=== PATIENT | male | born 1965 | race Caucasian/White ===

== ENCOUNTER 2024-08-03 16:13 | Inpatient (IN) | payer MEDICAID, SELFPAY ==
[2024-08-03 16:17] VITALS: PULSE 84; RESP 18
[2024-08-03 16:39] VITALS: BP 110/69; PULSE 100; RESP 20; TEMP 36.8; O2SAT 95
--- NOTE | 2024-08-03 16:53 | EDNOTE_ITS ---
<Statement entered by Paula Carvalho MD - 08/15/24 21:08> As co-signing physician, I was present and available for consult prn. I concur with the plan and care as documented by the midlevel provider. ED General RME/HPI General Chief complaint: General Adult/Misc Complain Stated complaint: RIGHT LEG NUMBNESS/TINGLING Time Seen by Provider: 08/03/24 16:42 Arrival date/time: 08/03/24 16:13 RME / HPI RME / HPI narrative: 58-year-old male patient who is homeless, hypertension, history of craniectomy in the left, more than a year ago, came in for evaluation regarding right-sided upper and lower extremity weakness. According to the patient the right lower extremity has been weak for more than 3 days, however the right upper extremity was noted to be weaker than usual since he woke up yesterday morning. He told me that he cannot even button his shoelace anymore. He also complained of massive headache. It comes and goes. Patient is not taking any blood thinner. He told me that he had multiple falls for the last 3 days due to weakness to the right upper and lower extremity. Denies any neck pain. Patient is denying also any slurring of speech. Related Data Allergies Allergy/AdvReac Type Severity Reaction Status Date / Time No Known Allergies Allergy Verified 08/03/24 18:57 Review of Systems Review of Systems Narrative Review of Systems: Review of system reviewed and within normal limits except mentioned in HPI ED Exam Narrative Physical exam: VITAL SIGNS: Reviewed. GENERAL APPEARANCE: Alert and interactive, follows commands, no acute distress, HEAD AND FACE: Skull deformity noted on the left side of this head + positive facial asymmetry on the right ENT: PERRL, pink conjunctivitis, eyelid no trauma, Mucous membrane moist. NECK: Supple, nontender, no nuchal rigidity. CHEST: No tenderness, no crepitus, no paradoxical movement, no retractions. LUNGS: Clear, well ventilated, symmetric, no rales, no wheezing, no ronchi, no stridor, good breath sounds bilaterally. HEART: Regular rate, regular rhythm, no murmur, no gallops. ABDOMEN: Soft, positive bowel sounds, nondistended, no guarding, nontender, no rebound, no masses, RECTAL: Deferred. GENITAL: Deferred. NEUROLOGICAL: Gross motor function intact sensory function intact, Appropriate for age. MUSCULOSKELETAL: low back nontender, full range of motion. EXTREMITIES: Right upper and lower extremity weakness, right hand orbitread operator is weaker than the left, slight right arm drifting noted also. SKIN: Color pink, dry, no rash, no lacerations, no abrasions, no contusions. LYMPHATICS: Deferred. Course Quality Measures none Orders Category Date Time Status COVID-19 Screening Questionnaire NOW Care 08/04/24 00:12 Active Decision to Admit X1 Care 08/04/24 00:11 Completed EKG (ED ONLY) *Do not use* NOW Care 08/03/24 17:05 Completed Nurse Swallow Screen X1 Care 08/04/24 00:[address] head/brain wo con Stat Exams 08/03/24 17:04 Completed EKG (ED Only) Stat Exams 08/03/24 17:04 Draft XR chest 1V Stat Exams 08/03/24 17:04 Completed Alcohol, Blood Medical Stat Lab 08/03/24 17:18 Completed B-Type Natriuretic Peptide Stat Lab 08/03/24 17:18 Completed CBC Stat Lab 08/03/24 17:18 Completed Comprehensive Metabolic Panel Stat Lab 08/03/24 17:18 Completed Drug Screen,Urine Stat Lab 08/03/24 17:29 Completed Partial Thromboplastin Time Stat Lab 08/03/24 17:18 Completed Prothrombin Time with INR Stat Lab 08/03/24 17:18 Completed Troponin I Stat Lab 08/03/24 17:18 Completed Urinalysis, C/S if Indicated Stat Lab 08/03/24 17:29 Completed Morphine Inj Med 08/03/24 18:59 Discontinued 4 mg IVP X1 ONE Vital Signs Vital signs: Vital Signs Temperature 98.2 F 08/03/24 16:39 Pulse Rate 100 08/03/24 16:39 Respiratory Rate 20 08/03/24 16:39 Blood Pressure 110/69 08/03/24 16:39 Pulse Oximetry (%) 95 08/03/24 16:39 Oxygen Delivery Method Room Air 08/03/24 16:39 Discharge Plan Plan Patient Disposition: Admit Acute Care w/in Hospital Problem List Clinical Impression: Stroke-like symptom MDM Narrative [facility] hospital course: 58-year-old male patient who is homeless, hypertension, history of craniectomy in the left, more than a year ago, came in for evaluation regarding right-sided upper and lower extremity weakness. According to the patient the right lower extremity has been weak for more than 3 days, however the right upper extremity was noted to be weaker than usual since he woke up yesterday morning. He told me that he cannot even button his shoelace anymore. He also complained of massive headache. It comes and goes. Patient is not taking any blood thinner. He told me that he had multiple falls for the last 3 days due to weakness to the right upper and lower extremity. Denies any neck pain. Patient is denying also any slurring of speech. None urgent teleneurology referral was done Care transferred to NAUN Judge for final disposition pending teleneuro consult Medication Administration(s) Medication Administration History Acetaminophen (Acetaminophen 325 Mg Tablet) 650 mg PO Q6H PRN PRN Reason: PAIN SCALE 1-3 (mild Stop: 09/03/24 00:54 Atorvastatin Calcium (Atorvastatin Calcium 20 Mg Tablet) 40 mg PO HS COUNT INCLUDES THE [facility] Stop: 09/03/24 20:59 Nicotine (Nicotine Patch 7 Mg/24 Hr Patch.Td24) 7 mg TOP QDAY YELENA Stop: 09/03/24 08:59 Last Admin: 08/04/24 09:31 Dose: 7 mg Documented By: MARVIN Ondansetron HCl (Ondansetron Inj 2 Mg/Ml Inj 2 Ml) 4 mg IVP Q6H PRN; Protocol PRN Reason: NAUSEA OR VOMITING Stop: 09/03/24 00:54 Oxycodone/Acetaminophen (Oxycodone/Apap 5/325 Tablet) 1 tab PO Q6H PRN PRN Reason: PAIN SCALE 4-6 (Moderate Stop: 08/09/24 00:54 Last Admin: 08/04/24 09:42 Dose: 1 tab Documented By: Admin: 08/04/24 01:28 Dose: 1 tab Documented By: JOHNNIE Quetiapine Fumarate (Quetiapine Fumarate 25 Mg Tablet) 25 mg PO HS COUNT INCLUDES THE [facility] Stop: 09/03/24 20:59 Discontinued Medications Aspirin (Aspirin 325 Mg Tablet) 325 mg PO QDAY YELENA Stop: 09/03/24 04:34 Morphine Sulfate (Morphine Sulf Inj 10 Mg/Ml Vial) 4 mg IVP X1 ONE Stop: 08/03/24 19:00 Last Admin: 08/03/24 19:22 Dose: 4 mg Documented By: RAJIV Quetiapine Fumarate (Quetiapine Fumarate 25 Mg Tablet) 25 mg PO X1 ONE Stop: 08/04/24 01:01 Last Admin: 08/04/24 01:29 Dose: 25 mg Documented By: JOHNNIE
--- NOTE | 2024-08-03 17:04 | XR_ITS ---
Examination: CT brain head without contrast. 2-D sagittal coronal reconstructions Date and time of exam:August 03, 2024 1729 hours INDICATIONS: Onset right-sided body weakness numbness today CTDI: vol (mGy):46.9 DLP: (mGycm):929 Technique: Multiple CT axial sections of the brain have been obtained, 5 mm slice thickness. Contrast has not been administered. 2-D sagittal, coronal reconstructions have been obtained Low dose protocols were performed. One or more of the following dose reduction techniques were used; automated exposure control, adjustment of the mA and/or KV according to patient size, use of iterative reconstruction technique. Findings: No prior films available. Large left craniotomy defect Mild ventricular enlargement No acute hemorrhage either intra or extra-axial No midline shift IMPRESSION: No acute hemorrhage or mass effect
--- NOTE | 2024-08-03 17:04 | EKG_ITS ---
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
--- NOTE | 2024-08-03 17:04 | XR_ITS ---
Examination: AP chest single view TECHNIQUE: AP portable upright chest single view. Date and time: August 03, 2024, 1742 hours INDICATIONS: Right-sided body weakness beginning 3 days ago. FINDINGS: Normal heart size. No pneumonia or pulmonary edema. Mild osteopenia IMPRESSION: No active disease.
[2024-08-03 17:33] LABS: Basophils # (Auto) 0.1 Thou/mm3 (0.0-0.2); Basophils % (Auto) 1 % (0-2.5); Eosinophils # (Auto) 0.4 Thou/mm3 (0.0-0.5); Eosinophils % (Auto) 4 % (0-10); Hematocrit 41.2 % (41.0-53.0); Hemoglobin 14.9 g/dL (13.5-16.0); Immature Granulocytes % (Auto) 1 % (0-0); Immature Granulocytes Auto 0.05 Thou/mm3 (0.00-0.00); Lymphocytes # (Auto) 3.6 Thou/mm3 (1.0-4.8); Lymphocytes % (Auto) 34 % (10-50); Mean Corpuscular HGB Conc 36.2 g/dl (31.0-37.0); Mean Corpuscular Volume 88 fL (80-100); Monocytes # (Auto) 1.1 Thou/mm3 (0.0-0.8); Monocytes % (Auto) 11 % (0-12); Neutrophils # (Auto) 5.3 Thou/mm3 (1.8-7.7); Neutrophils % (Auto) 50 % (37-80); Nucleated Red Blood Cell % 0 /100 WBC (0); Platelet Count 239 Thou/mm3 (140-440); RDW Standard Deviation 44.5 fL (35.1-43.9); Red Blood Count 4.66 Miln/mm3 (4.50-5.90); White Blood Count 10.5 Thou/mm3 (3.8-10.6)
[2024-08-03 17:36] LABS: Collection Type, Urine Clean Catch; RBC,Urine 0 /hpf (0-3); Squamous Epithelial Cell,Urine 0 /hpf (0-5); WBC,Urine 0 /hpf (0-5)
[2024-08-03 17:50] LABS: Bacteria,Urine Rare; Bilirubin,Urine Negative (Negative); Blood,Urine Negative (Negative); Clarity,Urine Clear (Clear/Hazy); Color,Urine Lt-Yellow (Lt Yel-Yel); Culture Indicated,Urine Not Indicated; Glucose, Urine Negative (Negative); Ketones,Urine Negative (Negative); Leukocyte Esterase,Urine Negative (Negative); Nitrite,Urine Negative (Negative); Protein,Urine Negative (Neg - Trace); Specific Gravity,Urine 1.012 (1.001-1.035); Urobilinogen,Urine Negative mg/dL (0.0-1.0)
[2024-08-03 17:55] LABS: B-Type Natriuretic Peptide < 20 pg/mL (0-100)
[2024-08-03 17:56] LABS: INR 0.9 (0.9-1.3); Partial Thromboplastin Time 27.1 Seconds (22.0-36.0); Prothrombin Time 10.3 Seconds (9.0-12.2)
[2024-08-03 17:57] LABS: Alanine Aminotransferase 23 U/L (10-49); Albumin, Serum 4.2 gm/dL (3.5-5.0); Albumin/Globulin Ratio 1.5 (1.2-2.2); Alcohol, Blood Medical 60.8 mg/dL (0-10.0); Alkaline Phosphatase 90 U/L (46-116); Anion Gap 12 (7-16); Aspartate Amino Transferase 26 U/L (0-34); BUN/Creatinine Ratio 8 Ratio (12-20); Bilirubin,Total 0.5 mg/dL (0.3-1.2); Blood Urea Nitrogen 6 mg/dL (9-23); Calcium 9.1 mg/dL (8.3-10.6); Calcium (Corrected) 9.1 mg/dL (8.5-10.1); Carbon Dioxide 20.5 mMol/L (20.0-31.0); Chloride 107 mMol/L (98-107); Creatinine (Component) 0.8 mg/dL (0.6-1.3); Globulin 2.8 gm/dL (2.3-3.5); Glucose 89 mg/dL (74-106); Osmolality,Calculated 274 (275-295); Potassium 3.4 mMol/L (3.4-5.1); Sodium 139 mMol/L (136-145); Troponin I < 0.002 ng/mL (0.0-0.045); eGFR > 60 See Note
[2024-08-03 18:12] LABS: Amphetamine/Methamp Scrn,U Negative (Negative); Barbiturate Screen,Urine Positive (Negative); Benzodiazepines Screen,Urine Positive (Negative); Benzoylecgonine Screen, Ur Negative (Negative); Fentanyl Screen,Urine Negative (Negative); Opiate Screen,Urine Negative (Negative); THC Screen,Urine Negative (Negative)
[2024-08-03 18:47] VITALS: BP 112/72; PULSE 87; RESP 18; TEMP 36.5; O2SAT 95
[2024-08-03] MEDS: MORPHINE SULF INJ 10 MG/ML VIAL 4 MG IVP (19:22)
[2024-08-03 20:30] VITALS: BP 111/67; PULSE 78; RESP 16; TEMP 37; O2SAT 95
--- NOTE | 2024-08-03 21:06 | PC.NURSE ---
stroke consult Case # [id number]?
[2024-08-03 22:00] VITALS: BP 149/91; PULSE 57; RESP 17; TEMP 37; O2SAT 97
[2024-08-04] VITALS (18 sets, daily range): BP systolic 74–129; BP diastolic 51–83; PULSE 65–91; RESP 13–24; TEMP 36.4–37.1; O2SAT 92–98; BMI 22.9
--- NOTE | 2024-08-04 | XR_ITS ---
Examination: MRI brain without intravenous contrast. Date and time of exam: August 04, 2024 0730 hours INDICATIONS: Onset of right-sided body weakness frequent falls this week, history left craniotomy Technique: Multiple axial and sagittal images of the brain obtained. Siemens high-resolution 1.5 Grace short bore scanners utilized. Sagittal sections, T1-weighted, TR 500, TE 14, are performed. Axial sections proton-density and T2-weighted have been obtained. Inversion recovery axial images, TR 9, 260, TE 111, TI 2500. Diffusion weighted images, axial sections, TR 4800, TE 128, B value 1000 Axial sections, ADC map, TR 4800, TE 128 Findings: Enlargement of the sella turcica is not present. The optic chiasm and infundibular are not remarkable. Prepontine and interpeduncular cisterns are not enlarged. There is no localized enlargement of the medulla or tl. Fourth ventricle and cerebellar tonsils appear normal in position. No subacute area of hemorrhage density is seen. Mass in the cerebellopontine angle region is not evident. Globes symmetrical. Orbital musculature including medial lateral rectus muscles do not exhibit abnormality. Diffusion-weighted images demonstrate no focus of restricted diffusion. Increased white matter signal , minor, medial left parietal lobe Mass effect upon the ventricular system is not identified. Large left craniotomy defect Impression: Negative for acute hemorrhage mass effect or midline shift No acute infarct
--- NOTE | 2024-08-04 00:01 | PC.NURSE ---
per [facility] provider ok for pt to eat if pass nurse swallow screen
--- NOTE | 2024-08-04 00:05 | ESCONSULT_ITS ---
Tele Neuro Consultation Consultation Date 08/04/24 Most Recent Vital Signs Last Vital Signs Temp 98.4 F 08/04/24 00:03 Pulse 85 08/04/24 00:03 Resp 16 08/04/24 00:03 BP 119/78 08/04/24 00:03 Pulse Ox 95 08/04/24 00:03 O2 Del Method Room Air 08/04/24 00:03 Laboratory-Coagulation Panel PT 10.3 Seconds (9.0-12.2) 08/03/24 17:18 INR 0.9 (0.9-1.3) 08/03/24 17:18 APTT 27.1 Seconds (22.0-36.0) 08/03/24 17:18 Consultation Narrative [facility] TeleNeurology Consult Services Stat Consult Patient Name: Garrick Daniels Date of : 1965 Identification Number: Date of Service: 08/03/2024 17:19:44 Diagnosis: ? I63.89 - Cerebrovascular accident (CVA) due to other mechanism ([facility]) Impression 58 yr old male with prior hx of head surgery secondary to trauma, HTN presenting with Right side upper and lower extremity weakness. PT NIHSS is a 6 most notable for right hemiparesis. Pt reports he has been weak since his injury but got worse over the last week. It is not clear what his baseline is. It is possible that he had a stroke that may have made the right side worse. Would recommend getting MRI Brain to eval for signs of a stroke. Also consider discussion with NSGY given that he has not had the remainder of his skull replaced since his surgery. Recommendations: Our recommendations are outlined below. Diagnostic Studies : MRI head without contrast Laboratory Studies : Lipid panel I ordered Hemoglobin A1c Antithrombotic Medication : Hold antithrombotics for now. Statins for LDL goal less than 70 Anticoagulant Medication : Not indicated Nursing Recommendations : IV Fluids, avoid dextrose containing fluids, Maintain euglycemia Neuro checks q4 hrs x 24 hrs and then per shift Head of bed 30 degrees Continue with Telemetry Consultations : Recommend Speech therapy if failed dysphagia screen Physical therapy/Occupational therapy Smoking cessation counselling recommended Inpatient rehab if recommended by physical/occupational therapy DVT Prophylaxis : SCDs, Pneumatic Compression Disposition : Neurology will follow Metrics: Dispatch Time: 08/03/2024 17:19:44 Callback Response Time: 08/03/2024 17:20:11 Primary Provider Notified of Diagnostic Impression and Management Plan on: 08/04/2024 00:03:16 CT HEAD: CT head unremarkable for acute infarction or hemorrhage per Radiology: Large Left Craniotomy defect Chief Complaint: Right Lower Extremity History of Present Illness: Patient is a 58 year old Male. 58 yr old male with prior hx of head surgery secondary to trauma, HTN presenting with Right side upper and lower extremity weakness. He reports that he had the surgery in September 2023 and has not had the skull place back since the surgery. He reports since the injury he has had right sided weakness but it has gotten worse then his baseline. Past Medical History: ? Hypertension ? Stroke Medications: No Anticoagulant use No Antiplatelet use Reviewed EMR for current medications Allergies: Reviewed Social History: Smoking: Yes Drug Use: Former Family History: There is no family history of premature cerebrovascular disease pertinent to this consultation ROS : 14 Points Review of Systems was performed and was negative except mentioned in HPI. Past Surgical History: There Is No Surgical History Contributory To Today?s Visit Examination: BP(149/91), Pulse(57), Blood Glucose(89) 1A: Level of Consciousness - Alert; keenly responsive + 0 1B: Ask Month and Age - Both Questions Right + 0 1C: Blink Eyes & Squeeze Hands - Performs Both Tasks + 0 2: Test Horizontal Extraocular Movements - Normal + 0 3: Test Visual Ying - No Visual Loss + 0 4: Test Facial Palsy (Use Grimace if Obtunded) - Minor paralysis (flat nasolabial fold, smile asymmetry) + 1 5A: Test Left Arm Motor Drift - No Drift for 10 Seconds + 0 5B: Test Right Arm Motor Drift - Drift, but doesn't hit bed + 1 6A: Test Left Leg Motor Drift - No Drift for 5 Seconds + 0 6B: Test Right Leg Motor Drift - Drift, hits bed + 2 7: Test Limb Ataxia (FNF/Heel-Block) - No Ataxia + 0 8: Test Sensation - Mild-Moderate Loss: Less Sharp/More Dull + 1 9: Test Language/Aphasia - Normal; No aphasia + 0 10: Test Dysarthria - Mild-Moderate Dysarthria: Slurring but can be understood + 1 11: Test Extinction/Inattention - No abnormality + 0 NIHSS Score: 6 Spoke with : NAUN Judge This consult was conducted in real time using interactive audio and video technology. Patient was informed of the technology being used for this visit and agreed to proceed. Patient located in hospital and provider located at home/office setting. Patient is being evaluated for possible acute neurologic impairment and high probability of imminent or life - threatening deterioration.I spent total of 35 minutes providing care to this patient, including time for face to face visit via telemedicine, review of medical records, imaging studies and discussion of findings with providers, the patient and / or family. Dr Jose Levi [facility] For Inpatient follow-up with [facility] physician please call [facility] at . As we are not an outpatient service for any post hospital discharge needs please contact the hospital for assistance. If you have any questions for the [facility] physicians or need to reconsult for clinical or diagnostic changes please contact us via [facility] at .
--- NOTE | 2024-08-04 00:47 | PD.RESHP ---
Documentation for date of: 08/04/24 HPI History of Present Illness Chief complaint: Right-sided weakness History of present illness: 58-year-old male with past medical history of left craniectomy secondary to head trauma about 1 year ago, alcohol use disorder, remote history of polysubstance use disorder, tobacco use disorder, COPD homelessness presenting to the ED on 08/04 with increased right-sided weakness. Patient states that he has been having frequent falls ever since he had the left craniectomy at [facility]. Patient explains that he is currently homeless and was previously staying at the [facility] but left due to some disagreement with staff. Patient's been having difficulty ambulating secondary to both left and right lower extremity weakness and states that the right upper extremity weakness has been progressively worsening in the past week. Patient was seen at [facility] but was discharged as medical staff believe that he had been drinking. Patient states that he drinks several cans of beer a day and last drink was today which he states was 1 can of beer. Patient denies hitting his head recently; however, he does have history of head trauma where he hit his head on a manhole cover required craniectomy as stated above. Patient also states that he is been told in the past that he has a bad liver but denies ever being told that he has cirrhosis. Medical history: As stated below Surgical history: Craniectomy, left-sided about 1 year ago at [facility] Allergies: NKDA Medications: Seroquel, bupropion, Meprazole, gabapentin, albuterol inhaler Family history: Noncontributory Social history: Patient is currently homeless, stays around [place], remote history of meth use disorder states that he is converted to [employer] recently, tobacco use disorder, alcohol use disorder ROS: All 12 systems assessed and the patient denies unless otherwise stated in HPI In the ED, patient presented normotensive, tachycardic with heart rate of 100, respiratory 20, afebrile satting 95 on room air pertinent lab findings included WBC 10.5, hemoglobin BUN 6, creatinine 0.8 troponin within normal limits, BNP less than 20 urinalysis with no signs of infection, U-Tox positive for barbiturates and benzos as patient's ethyl alcohol was 60.8 mg/dL. Chest x-ray showed no active disease, head CT showed no acute hemorrhage or mass effect and EKG showed sinus rhythm with occasional PVCs. Patient will be admitted for workup for possible new intracranial process, teleneurology consulted requesting MRI without contrast. Exam Vital Signs Temp Pulse Resp BP Pulse Ox O2 Del Method 98.4 F 85 16 119/78 95 Room Air 08/04/24 00:03 08/04/24 00:03 08/04/24 00:03 08/04/24 00:03 08/04/24 00:03 08/04/24 00:03 Narrative Exam Physical Exam: GENERAL: Awake, answering questions appropriately in Latvian, disheveled HEENT: NC/AT. Moist mucosa. PERRLA/EOMI. Conjunctival erythema CARDIO: Heart RRR, no obvious murmurs, no JVD. PULM: No coughing or visible SOB. Lungs CTA B/L. GI: Abdomen soft, NT/ND, +BS. SKIN/MSK/EXT: Upper and lower extremities with debris, pain noted on palpation of hip girdle. No rashes/edema/amputations noted. +Pedal pulses present B/L. NEURO: Oriented x3, senior trainer strength L>R, large left-sided craniectomy, right upper extremity muscle strength 3 out of 5 versus 5 out of 5 in the left similar lower extremity findings. No focal neurologic deficits noted. Results: Labs 08/04/24 01:10 08/04/24 01:10 Labs: Short CBC 08/03/24 Range/Units 17:18 WBC 10.5 (3.8-10.6) Thou/mm3 Hgb 14.9 (13.5-16.0) g/dL Hct 41.2 (41.0-53.0) % Plt Count 239 (140-440) Thou/mm3 BMP 08/03/24 17:18 Sodium 139 Potassium 3.4 Chloride 107 Carbon Dioxide 20.5 BUN 6 L Creatinine 0.8 Glucose 89 Calcium 9.1 Cardiac Enzymes 08/03/24 Range/Units 17:18 Troponin I < 0.002 (0.0-0.045) ng/mL Liver Function 08/03/24 Range/Units 17:18 Total Bilirubin 0.5 (0.3-1.2) mg/dL AST 26 (0-34) U/L ALT 23 (10-49) U/L Alkaline Phosphatase 90 (46-116) U/L Albumin 4.2 (3.5-5.0) gm/dL Urine 08/03/24 Range/Units 17:29 Urine Color Lt-Yellow (Lt Yel-Yel) Urine Clarity Clear (Clear/Hazy) Urine pH 6.0 (5.0-7.0) Ur Specific [place] 1.012 (1.001-1.035) Urine Protein Negative (Neg - Trace) Urine Glucose (UA) Negative (Negative) Quality Measures Quality Measures VTE prophylaxis Medications Home Medications and Allergies Allergies Allergy/AdvReac Type Severity Reaction Status Date / Time No Known Allergies Allergy Verified 08/03/24 18:57 Visit Medications Discontinued Medications Morphine Sulfate (Morphine Sulf Inj 10 Mg/Ml Vial) 4 mg IVP X1 ONE Stop: 08/03/24 19:00 Last Admin: 08/03/24 19:22 Dose: 4 mg Assessment & Plan Plan 58-year-old male with past medical history of left craniectomy secondary to head trauma about 1 year ago, alcohol use disorder, remote history of polysubstance use disorder, tobacco use disorder, COPD homelessness presenting to the ED with increased right-sided weakness will be admitted for workup for possible new intracranial process, teleneurology consulted requesting MRI without contrast. #Right-sided weakness #Frequent falls #History of craniectomy Patient has extensive history of craniectomy secondary to trauma about 1 year ago completed procedure at [facility] Patient's was staying at [facility] which is some sort of assisted care living facility for physical therapy; however, was left ago due to some disagreement Patient has several episodes of falls since being discharged from the assisted care living facility and is currently homeless On examination, patient has right sided weakness as noted in physical exam Chest x-ray shows no active disease Head CT shows no acute pathology Teleneurology was consulted in the ED which recommended MRI brain without contrast Plan: Follow-up on hip/pelvic x-ray secondary to falls and tenderness on exam Follow-up on MRI brain without contrast Teleneurology consulted, appreciate recommendations Will hold off on anticoagulation antiplatelet at this time as recommended by teleneurology Physical therapy #Psychiatric history Patient is on Seroquel and bupropion per pill bottles bedside Plan: Pending official med rec will restart home medications #Alcohol use disorder #Polysubstance use disorder #Tobacco use disorder As stated above, patient has remote history of polysubstance use disorder but currently actively smokes cigarettes and drinks several cans of beer a day Last drink was on 08/03, states that he drank 1 beer Denies drug use at this time, U tox is positive for barbiturates and benzodiazepines and urine alcohol is at 60.8 mg/dL Plan: rehabilitation services coordinator consulted Nicotine patch for tobacco use disorder Consider CIWA protocol but based on patient's alcohol intake, low suspicion for withdrawal symptoms at this time #Possible liver disease? As stated above, patient has been told in the past that he is a liver disorder On labs, patient's has unremarkable liver function test Plan: Monitor for any acute changes #COPD Chronic medical condition, not currently in an exacerbation Patient appears to only be on albuterol rescue inhaler Plan: Restart home inhalers pending med Health Maintenance: Lines: PIV Diet: Cardiac Bowel: Not needed GI prophylaxis: Not needed DVT prophylaxis: SCDs Dispo: Pending MRI brain without contrast, physical therapy and social media marketing manager for placement Code: Full Patient seen and examined with attending Dr. Enrique Rico, DO PGY-1 Internal Medicine - GME Attending Provider Attestation/Addendum I reviewed labs, imaging, EKG, home medications and prior available records. Face to face evaluation was performed by me. I have personally examined the patient and discussed assessment and plan with the IM team. I reviewed the resident note and agree with the plan with exceptions as below. History of brain trauma status post craniotomy Left upper/left lower extremity weakness Frequent falls Hip pain Alcohol use Tobacco use Homelessness CT head is negative for acute changes No aspirin per neurology recommendations Started atorvastatin Ordered brain MRI Avoid tobacco and alcohol use Hip x-ray to rule out fractures PT/OT evaluation
--- NOTE | 2024-08-04 01:00 | XR_ITS ---
Examination: Bilateral hips 3 views TECHNIQUE: AP pelvis, right lateral left lateral hip total 3 views Date and time: August 04, 2024 1315 hours INDICATIONS: Right leg numbness beginning 2 days ago after falling with injury to both hips FINDINGS: No right or left hip fracture or dislocation Bones of the pelvis intact IMPRESSION: No acute hip or pelvic fracture. Repeat the AP pelvis in 1 to 2 days as clinically warranted
--- NOTE | 2024-08-04 01:11 | PD.EDADDENDU ---
Emergency Room Addendum Addendum Narrative: Care assumed from colleague. Spoke to teleneuro who recommends stroke work-up. See neuro note. Spoke to IM resident who reports to Dr. Nunez, who will admit the patient.
--- NOTE | 2024-08-04 01:19 | PC.NURSE ---
CALLED [facility] FOR SEROQUEL
[2024-08-04 01:25] LABS: Basophils # (Auto) 0.1 Thou/mm3 (0.0-0.2); Basophils % (Auto) 1 % (0-2.5); Eosinophils # (Auto) 0.5 Thou/mm3 (0.0-0.5); Eosinophils % (Auto) 6 % (0-10); Hematocrit 43.7 % (41.0-53.0); Hemoglobin 15.4 g/dL (13.5-16.0); Immature Granulocytes % (Auto) 1 % (0-0); Immature Granulocytes Auto 0.05 Thou/mm3 (0.00-0.00); Lymphocytes # (Auto) 3.5 Thou/mm3 (1.0-4.8); Lymphocytes % (Auto) 37 % (10-50); Mean Corpuscular HGB Conc 35.2 g/dl (31.0-37.0); Mean Corpuscular Hemoglobin 32.3 pg (25.0-35.0); Mean Corpuscular Volume 92 fL (80-100); Monocytes % (Auto) 10 % (0-12); Neutrophils # (Auto) 4.3 Thou/mm3 (1.8-7.7); Neutrophils % (Auto) 46 % (37-80); Nucleated Red Blood Cell % 0 /100 WBC (0); Platelet Count 266 Thou/mm3 (140-440); RDW Standard Deviation 46.4 fL (35.1-43.9); Red Blood Count 4.77 Miln/mm3 (4.50-5.90); White Blood Count 9.4 Thou/mm3 (3.8-10.6)
[2024-08-04] MEDS: oxyCODONE/APAP 5/325 TABLET 1 TAB PO ×4 (01:28→23:59)
[2024-08-04] MEDS: QUEtiapine FUMARATE 25 MG TABLET PO ×2 (01:29→20:29)
[2024-08-04 01:40] LABS: Glucose Estimated Average 94 mg/dL (80-131); Hemoglobin A1C 4.9 % Hgb (4.8-6.0)
[2024-08-04 01:46] LABS: Alanine Aminotransferase 22 U/L (10-49); Albumin, Serum 4.1 gm/dL (3.5-5.0); Albumin/Globulin Ratio 1.5 (1.2-2.2); Alkaline Phosphatase 91 U/L (46-116); Anion Gap 9 (7-16); Aspartate Amino Transferase 25 U/L (0-34); BUN/Creatinine Ratio 6 Ratio (12-20); Blood Urea Nitrogen < 5 mg/dL (9-23); Calcium 9.4 mg/dL (8.3-10.6); Calcium (Corrected) 9.4 mg/dL (8.5-10.1); Carbon Dioxide 25.1 mMol/L (20.0-31.0); Cardiac Risk Estimate 2.1 RATIO (4.0-6.7); Chloride 106 mMol/L (98-107); Cholesterol 139 mg/dL (132-200); Creatinine (Component) 0.8 mg/dL (0.6-1.3); Globulin 2.7 gm/dL (2.3-3.5); Glucose 145 mg/dL (74-106); HDL Cholesterol 67 mg/dL (40-60); LDL Cholesterol,Calculated 60 mg/dL (0-130); Osmolality,Calculated 279 (275-295); Potassium 3.9 mMol/L (3.4-5.1); Sodium 140 mMol/L (136-145); Total Protein 6.8 gm/dL (5.7-8.2); Triglycerides 58 mg/dL (30-150); eGFR > 60 See Note
[2024-08-04] MEDS: NICOTINE PATCH 7 MG/24 HR PATCH.TD24 TOP (09:31)
[2024-08-04] MEDS: ONDANSETRON INJ 2 MG/ML INJ 2 ML 4 MG IVP (16:53)
[2024-08-04] MEDS: LORazepam 0.5 MG TABLET 2 MG PO (16:53)
--- NOTE | 2024-08-04 17:31 | ESPR_ITS ---
<Statement entered by Ronnie Neff MD - 08/06/24 02:18> I discussed with and supervised the electrical intern physician involved in the care of this patient. Patient assessment and plan was discussed with entire medicine team, including my attending. I agree with the assessment and plan as documented by electrical intern doctor. Patient care was discussed with my attending physician Dr. Kristen Neff, PGY-2 Documentation for date of: 08/04/24 Subjective Subjective Interval history: Patient is seen and examined at the bedside. Endorsed that he is having right lower extremity weakness since the craniectomy that happened 1 year ago Vitals are stable. On physical examination, noted weakness in the right upper and lower extremity Brain MRI did not show any acute infarct Will start on CIWA protocol if the patient starts to have withdrawal symptoms Exam Vital Signs Temp Pulse Resp BP Pulse Ox O2 Del Method 98.4 F 89 17 101/69 98 Room Air 08/04/24 16:22 08/04/24 16:22 08/04/24 16:22 08/04/24 16:22 08/04/24 16:22 08/04/24 16:22 Narrative Exam General: Awake. disheveled HEENT: Normocephalic, atraumatic, mucous membranes moist. Heart: Regular rate and rhythm, no murmurs. Lungs: Clear to auscultation with no wheezing or crackles. Abdomen: Soft, nondistended, nontender, positive bowel sounds. ?No guarding or rebound tenderness. Neurologic: Alert and oriented x3, noted weakness in the right upper and lower extremity, 4/5 and patient able to move all 4 extremities. Extremities: No edema. Skin: No rash or ecchymoses. Objective Labs 08/07/24 04:45 08/07/24 04:45 Labs: Laboratory Results - last 24 hr 08/03/24 08/03/24 08/04/24 17:18 17:29 01:10 WBC 10.5 9.4 RBC 4.66 4.77 Hgb 14.9 15.4 Hct 41.2 43.7 MCV 88 92 MCH 32.0 32.3 MCHC 36.2 35.2 RDW Std Deviation 44.5 H 46.4 H Plt Count 239 266 Neut % (Auto) 50 46 Lymph % (Auto) 34 37 [place] % (Auto) 11 10 Eos % (Auto) 4 6 Baso % (Auto) 1 1 Neut # (Auto) 5.3 4.3 Lymph # (Auto) 3.6 3.5 [place] # (Auto) 1.1 H 1.0 H Eos # (Auto) 0.4 0.5 Baso # (Auto) 0.1 0.1 Immature Gran # (Auto) 0.05 H 0.05 H Absolute Nucleated RBC 0.00 0.00 Immature Gran % 1 H 1 H Nucleated RBC % 0 0 PT 10.3 INR 0.9 APTT 27.1 Sodium 139 140 Potassium 3.4 3.9 D Chloride 107 106 Carbon Dioxide 20.5 25.1 Anion Gap 12 9 BUN 6 L < 5 L Creatinine 0.8 0.8 Estim Creat Clear Calc Not Performed. Not Performed. eGFR > 60 > 60 BUN/Creatinine Ratio 8 L 6 L Glucose [address] Glu mg/dL 94 Hemoglobin A1c 4.9 Calculated Osmolality 274 L 279 Calcium 9.1 9.4 Corrected Calcium 9.1 9.4 Total Bilirubin 0.5 1.0 D AST 26 25 ALT 23 22 Alkaline Phosphatase 90 91 Troponin I < 0.002 B-Natriuretic Peptide < 20 Total Protein 7.0 6.8 Albumin 4.2 4.1 Globulin 2.8 2.7 Albumin/Globulin Ratio 1.5 1.5 Triglycerides 58 Cholesterol 139 LDL Cholesterol, Calc 60 HDL Cholesterol 67 H Cholesterol/HDL Ratio 2.1 L Ur Collection Type Clean Catch Urine Color Lt-Yellow Urine Clarity Clear Urine pH 6.0 Ur Specific [place] 1.012 Urine Protein Negative Urine Glucose (UA) Negative Urine Ketones Negative Urine Blood Negative Urine Nitrite Negative Urine Bilirubin Negative Urine Urobilinogen (Auto) Negative Ur Leukocyte Esterase Negative Urine RBC 0 Urine WBC 0 Ur Squamous Epith Cells 0 Urine Bacteria Rare Ur Culture Indicated? Not Indicated Urine Opiates Screen Negative Urine Fentanyl Screen Negative Ur Barbiturates Screen Positive A U Amphetamin/Meth Scrn Negative U Benzodiazepines Scrn Positive A U Cocaine Metab Screen Negative U Marijuana (THC) Screen Negative Ethyl Alcohol 60.8 H Quality Measures Quality Measures none Assessment & Plan Assessment Current Active Medications: Generic Name Dose Route Start Last Admin Trade Name Freq PRN Reason Stop Dose Admin Acetaminophen 650 mg 08/04/24 00:55 Acetaminophen 325 Mg Tablet PO 09/03/24 00:54 Q6H PRN PAIN SCALE 1-3 (mild Atorvastatin Calcium 40 mg 08/04/24 21:00 Atorvastatin Calcium 20 Mg Tablet PO 09/03/24 20:59 HS YELENA Folic Acid 1 mg 08/04/24 21:00 Folic Acid 1 Mg Tablet PO 08/09/24 20:59 BID YELENA Lorazepam 0.5 mg 08/04/24 15:28 Lorazepam 0.5 Mg Tablet PO 08/09/24 15:27 Q4HR PRN CIWA Score 2-6 Lorazepam 1 mg 08/04/24 15:28 Lorazepam 0.5 Mg Tablet PO 08/09/24 15:27 Q4HR PRN CIWA SCORE 7-11 Lorazepam 2 mg 08/04/24 15:28 08/04/24 16:53 Lorazepam 0.5 Mg Tablet PO 08/09/24 15:27 2 mg Q4HR PRN Administration CIWA SCORE 12-15 Lorazepam 1 mg 08/04/24 15:28 Lorazepam 2 Mg/Ml Vial IV X1 PRN Breakthrough Agitation Nicotine 7 mg 08/04/24 09:00 08/04/24 09:31 Nicotine Patch 7 Mg/24 Hr Patch.Td24 TOP 09/03/24 08:59 7 mg QDAY YELENA Administration Ondansetron HCl 4 mg 08/04/24 00:55 08/04/24 16:53 Ondansetron Inj 2 Mg/Ml Inj 2 Ml IVP 09/03/24 00:54 4 mg Q6H PRN Administration NAUSEA OR VOMITING Protocol Oxycodone/Acetaminophen 1 tab 08/04/24 00:55 08/04/24 16:53 Oxycodone/Apap 5/325 Tablet PO 08/09/24 00:54 1 tab Q6H PRN Administration PAIN SCALE 4-6 (Moderate Quetiapine Fumarate 25 mg 08/04/24 21:00 Quetiapine Fumarate 25 Mg Tablet PO 09/03/24 20:59 HS YELENA Thiamine HCl 100 mg 08/04/24 21:00 Thiamine 100 Mg Tablet PO 08/09/24 20:59 BID YELENA Plan 58-year-old male with past medical history of left craniectomy secondary to head trauma about 1 year ago, alcohol use disorder, remote history of polysubstance use disorder, tobacco use disorder, COPD homelessness presenting to the ED with increased right-sided weakness will be admitted for workup for possible new intracranial process, teleneurology consulted requesting MRI without contrast. #Right-sided weakness - stroke ruled out #Frequent falls - likely due to weakness and drugs, alcohol abuse #History of craniectomy Patient has extensive history of craniectomy secondary to trauma about 1 year ago completed procedure at [facility] [place] Patient's was staying at [facility] which is some sort of assisted care living facility for physical therapy; however, was left ago due to some disagreement Patient has several episodes of falls since being discharged from the assisted care living facility and is currently homeless On examination, patient has right sided weakness as noted in physical exam Chest x-ray shows no active disease Head CT shows no acute pathology Teleneurology was consulted in the ED which recommended MRI brain without contrast Brain MRI - Did not show any infarct Plan: Teleneurology consulted, appreciate recommendations Will hold off on anticoagulation antiplatelet at this time as recommended by teleneurology Physical therapy #Psychiatric history Patient is on Seroquel and bupropion per pill bottles bedside Plan: Pending official med rec will restart home medications #Alcohol use disorder #Polysubstance use disorder #Tobacco use disorder As stated above, patient has remote history of polysubstance use disorder but currently actively smokes cigarettes and drinks several cans of beer a day Last drink was on 08/03, states that he drank 1 beer Denies drug use at this time, U tox is positive for barbiturates and benzodiazepines and urine alcohol is at 60.8 mg/dL Plan: administrative services director consulted Nicotine patch for tobacco use disorder Consider CIWA protocol but based on patient's alcohol intake, low suspicion for withdrawal symptoms at this time #Possible liver disease? As stated above, patient has been told in the past that he is a liver disorder On labs, patient's has unremarkable liver function test Plan: Monitor for any acute changes #COPD Chronic medical condition, not currently in an exacerbation Patient appears to only be on albuterol rescue inhaler Plan: Restart home inhalers pending med Health Maintenance: Lines: PIV Diet: Cardiac Bowel: Not needed GI prophylaxis: Not needed DVT prophylaxis: SCDs Dispo: Pending placement Code: Full Patient plan of care was discussed with the attending physician, Dr. Peterson and senior resident Dr. Tawanda Michaels, PGY1 Attending Provider Attestation/Addendum I attest that I was physically present for the evaluation, physical examination, lab and imaging review of the patient with the residents. I discussed the case with the residents and agree with the findings and plans of care as documented above. Randee Peterson MD
--- NOTE | 2024-08-04 19:49 | PC.NURSE ---
pt was given snacks and drink
[2024-08-04] MEDS: THIAMINE 100 MG TABLET PO (20:29)
[2024-08-04] MEDS: ATORVASTATIN CALCIUM 20 MG TABLET 40 MG PO (20:29)
[2024-08-04] MEDS: FOLIC ACID 1 MG TABLET PO (20:29)
[2024-08-05] VITALS (8 sets, daily range): BP systolic 103–121; BP diastolic 74–78; PULSE 75–93; RESP 17–20; TEMP 36.1–36.7; O2SAT 94–98; BMI 21.4
[2024-08-05] MEDS: NICOTINE PATCH 21 MG/24 HR PATCH.TD24 TOP ×2 (01:17→20:34)
--- NOTE | 2024-08-05 01:23 | PC.NURSE ---
Notified by JOSÉ Good that patient is chewing on his cigarettes. Notified pt that smoking OR chewing tobacco in facility is not allowed. notified and ordered 21mg nicotine patch. Patient agreeable to no longer chewing cigarettes/tobacco while in hospital as long as he has nicotine patch
[2024-08-05] MEDS: LORazepam 0.5 MG TABLET PO ×4 (01:28→18:14)
[2024-08-05 06:07] LABS: Basophils # (Auto) 0.1 Thou/mm3 (0.0-0.2); Basophils % (Auto) 1 % (0-2.5); Eosinophils # (Auto) 0.5 Thou/mm3 (0.0-0.5); Eosinophils % (Auto) 6 % (0-10); Hematocrit 41.1 % (41.0-53.0); Hemoglobin 14.4 g/dL (13.5-16.0); Immature Granulocytes % (Auto) 1 % (0-0); Immature Granulocytes Auto 0.05 Thou/mm3 (0.00-0.00); Lymphocytes % (Auto) 13 % (10-50); Mean Corpuscular Volume 91 fL (80-100); Monocytes # (Auto) 0.8 Thou/mm3 (0.0-0.8); Monocytes % (Auto) 10 % (0-12); Neutrophils # (Auto) 5.6 Thou/mm3 (1.8-7.7); Neutrophils % (Auto) 71 % (37-80); Nucleated Red Blood Cell % 0 /100 WBC (0); Platelet Count 260 Thou/mm3 (140-440); RDW Standard Deviation 46.1 fL (35.1-43.9)
[2024-08-05] MEDS: oxyCODONE/APAP 5/325 TABLET 1 TAB PO ×3 (06:10→18:30)
[2024-08-05 06:21] LABS: Alanine Aminotransferase 25 U/L (10-49); Albumin, Serum 3.7 gm/dL (3.5-5.0); Albumin/Globulin Ratio 1.4 (1.2-2.2); Alkaline Phosphatase 85 U/L (46-116); Anion Gap 8 (7-16); Aspartate Amino Transferase 25 U/L (0-34); BUN/Creatinine Ratio 9 Ratio (12-20); Bilirubin,Total 0.9 mg/dL (0.3-1.2); Blood Urea Nitrogen 7 mg/dL (9-23); Calcium 9.1 mg/dL (8.3-10.6); Calcium (Corrected) 9.3 mg/dL (8.5-10.1); Carbon Dioxide 26.7 mMol/L (20.0-31.0); Chloride 106 mMol/L (98-107); Creatinine (Component) 0.8 mg/dL (0.6-1.3); Estimated Creatinine Clearance 97.5 mL/min (>60); Globulin 2.6 gm/dL (2.3-3.5); Glucose 89 mg/dL (74-106); Osmolality,Calculated 278 (275-295); Potassium 4.1 mMol/L (3.4-5.1); Sodium 141 mMol/L (136-145); Total Protein 6.3 gm/dL (5.7-8.2); eGFR > 60 See Note
[2024-08-05] MEDS: FOLIC ACID 1 MG TABLET PO ×2 (12:31→20:26)
[2024-08-05] MEDS: THIAMINE 100 MG TABLET PO ×2 (12:31→20:26)
--- NOTE | 2024-08-05 15:02 | ESPR_ITS ---
Documentation for date of: 08/05/24 Subjective Subjective Interval history: No significant overnight events. Patient doing much better than yesterday, does seem to be a bit emotional. Medical reconciliation regarding gabapentin and bupropion pending, will restart once confirmed. Vitals and labs unremarkable. Patient pending PT. Exam Vital Signs Temp Pulse Resp BP Pulse Ox O2 Del Method 97.2 F 80 20 121/78 97 Room Air 08/05/24 12:00 08/05/24 12:00 08/05/24 12:08/05/24 12:08/05/24 12:08/05/24 12:00 Narrative Exam General: Awake. disheveled HEENT: Normocephalic, atraumatic, mucous membranes moist. Heart: Regular rate and rhythm, no murmurs. Lungs: Clear to auscultation with no wheezing or crackles. Abdomen: Soft, nondistended, nontender, positive bowel sounds. ?No guarding or rebound tenderness. Neurologic: Alert and oriented x3, noted weakness in the right upper and lower extremity, 4/5 and patient able to move all 4 extremities. Extremities: No edema. Skin: No rash or ecchymoses. Objective Labs 08/05/24 05:02 08/05/24 05:02 Labs: Laboratory Results - last 24 hr 08/05/24 05:02 WBC 8.0 RBC 4.50 Hgb 14.4 Hct 41.1 MCV 91 MCH 32.0 MCHC 35.0 RDW Std Deviation 46.1 H Plt Count 260 Neut % (Auto) 71 Lymph % (Auto) 13 [place] % (Auto) 10 Eos % (Auto) 6 Baso % (Auto) 1 Neut # (Auto) 5.6 Lymph # (Auto) 1.0 [place] # (Auto) 0.8 Eos # (Auto) 0.5 Baso # (Auto) 0.1 Immature Gran # (Auto) 0.05 H Absolute Nucleated RBC 0.00 Immature Gran % 1 H Nucleated RBC % 0 Sodium 141 Potassium 4.1 Chloride 106 Carbon Dioxide 26.7 Anion Gap 8 BUN 7 L Creatinine 0.8 Estim Creat Clear Calc 97.5 eGFR > 60 BUN/Creatinine Ratio 9 L Glucose 89 D Calculated Osmolality 278 Calcium 9.1 Corrected Calcium 9.3 Total Bilirubin 0.9 AST 25 ALT 25 Alkaline Phosphatase 85 Total Protein 6.3 Albumin 3.7 Globulin 2.6 Albumin/Globulin Ratio 1.4 Quality Measures Quality Measures none Assessment & Plan Assessment Current Active Medications: Generic Name Dose Route Start Last Admin Trade Name Freq PRN Reason Stop Dose Admin Acetaminophen 650 mg 08/04/24 00:55 Acetaminophen 325 Mg Tablet PO 09/03/24 00:54 Q6H PRN PAIN SCALE 1-3 (mild Albuterol/Ipratropium 3 ml 08/05/24 08:20 Albuterol/Ipratropium (Duoneb) Rt Qi 3 Ml Nebu INH 09/04/24 12:59 Q6HRRT PRN sob Atorvastatin Calcium 40 mg 08/04/24 21:00 08/04/24 20:29 Atorvastatin Calcium 20 Mg Tablet PO 09/03/24 20:59 40 mg HS YELENA Administration Folic Acid 1 mg 08/04/24 21:00 08/05/24 12:31 Folic Acid 1 Mg Tablet PO 08/09/24 20:59 1 mg BID YELENA Administration Lorazepam 0.5 mg 08/04/24 15:28 08/05/24 12:31 Lorazepam 0.5 Mg Tablet PO 08/09/24 15:27 0.5 mg Q4HR PRN Administration CIWA Score 2-6 Lorazepam 1 mg 08/04/24 15:28 Lorazepam 0.5 Mg Tablet PO 08/09/24 15:27 Q4HR PRN CIWA SCORE 7-11 Lorazepam 2 mg 08/04/24 15:28 08/04/24 16:53 Lorazepam 0.5 Mg Tablet PO 08/09/24 15:27 2 mg Q4HR PRN Administration CIWA SCORE 12-15 Lorazepam 1 mg 08/04/24 15:28 Lorazepam 2 Mg/Ml Vial IV X1 PRN Breakthrough Agitation Nicotine 21 mg 08/05/24 00:55 08/05/24 12:25 Nicotine Patch 21 Mg/24 Hr Patch.Td24 TOP 09/04/24 00:54 Not Given QDAY YELENA Ondansetron HCl 4 mg 08/04/24 00:55 08/04/24 16:53 Ondansetron Inj 2 Mg/Ml Inj 2 Ml IVP 09/03/24 00:54 4 mg Q6H PRN Administration NAUSEA OR VOMITING Protocol Oxycodone/Acetaminophen 1 tab 08/04/24 00:55 08/05/24 12:31 Oxycodone/Apap 5/325 Tablet PO 08/09/24 00:54 1 tab Q6H PRN Administration PAIN SCALE 4-6 (Moderate Pantoprazole Sodium 20 mg 08/05/24 21:00 Pantoprazole 20 Mg Tablet PO 09/04/24 20:59 HS YELENA Quetiapine Fumarate 25 mg 08/04/24 21:00 08/04/24 20:29 Quetiapine Fumarate 25 Mg Tablet PO 09/03/24 20:59 25 mg HS YELENA Administration Thiamine HCl 100 mg 08/04/24 21:00 08/05/24 12:31 Thiamine 100 Mg Tablet PO 08/09/24 20:59 100 mg BID YELENA Administration Plan 58-year-old male with past medical history of left craniectomy secondary to head trauma about 1 year ago, alcohol use disorder, remote history of polysubstance use disorder, tobacco use disorder, COPD homelessness presenting to the ED with increased right-sided weakness will be admitted for workup for possible new intracranial process, teleneurology consulted requesting MRI without contrast. #Right-sided weakness - stroke ruled out #Frequent falls - likely due to weakness and drugs, alcohol abuse #History of craniectomy Patient has extensive history of craniectomy secondary to trauma about 1 year ago [place] [facility] [place] was staying at [facility] which is some sort of assisted care living facility for physical therapy; however, was left ago due to some disagreement Patient has several episodes of falls since being discharged from the assisted care living facility and is currently homeless On examination, patient has right sided weakness as noted in physical exam Chest x-ray shows no active disease Head CT shows no acute pathology Teleneurology was consulted in the ED which recommended MRI brain without contrast Brain MRI - Did not show any infarct Plan: -Will hold off on anticoagulation antiplatelet at this time as recommended by teleneurology -Physical therapy pending #Psychiatric history Plan: -Seroquel restarted -Will restart Bupropion and Gabapentin after med reconciliation #Alcohol use disorder #Polysubstance use disorder #Tobacco use disorder As stated above, patient has remote history of polysubstance use disorder but currently actively smokes cigarettes and drinks several cans of beer a day Last drink was on 08/03, states that he drank 1 beer Denies drug use at this time, U tox is positive for barbiturates and benzodiazepines and urine alcohol is at 60.8 mg/dL Plan: -financial services sales representative consulted -Nicotine patch for tobacco use disorder -On [facility] protocol #Possible liver disease? As stated above, patient has been told in the past that he is a liver disorder On labs, patient's has unremarkable liver function test Plan: Monitor for any acute changes #COPD Chronic medical condition, not currently in an exacerbation Patient appears to only be on albuterol rescue inhaler Plan: -DuoNebs Q6H PRN Health Maintenance: Lines: PIV Diet: Cardiac Bowel: Not needed GI prophylaxis: Not needed DVT prophylaxis: SCDs Dispo: Pending placement Code: Full This patient care was discussed with my attending Dr. Brigitte Neff MD PGY-2 Disclaimer: Minor errors in hat finishing materials preparer may be present since this note was dictated by speech recognition software. Attending Provider Attestation/Addendum I have discussed and was present for the essential components of the history, physical examination, diagnosis, and treatment plan with the resident. I agree with the patient's care as documented by the resident and amended herein by me. Santiago Briggs, DO. Patient seen and evaluated this AM. No acute events overnight, vital signs stable, patient afebrile, labs largely unremarkable today. Patient was in good spirits at time of bedside visit, stated the desire to get his life together, was able to clearly outline his medical issues, did not disclose or hint of any SI or HI at time of bedside visit however per our social media content manager Beverly, the patient did express desires of SI and quickly recanted hence I think the patient needs clearance prior to discharge to ensure his own safety and safety to others. Will likely get tomorrow if SNF becomes available as all imaging is negative, the patient has been cleared for discharge by neurology. Physical therapy pending. Continue to monitor closely Leiser. Although this document has been carefully reviewed, there may still be some phonetic and other typographical errors. These errors are purely grammatical due to imperfections in the software program and should not be construed in any way to compromise the substance of the patient's medical care during this visit.
--- NOTE | 2024-08-05 15:55 | PC.SS ---
Patient is a 58YO White Male, reason for visit: RIGHT SIDED WEAKNESS. Demographic information confirmed by patient. He stated address listed: [address] [place] is only a mailing address due to patient being transient. Patient?s Primary Medical Surrogate Decision Maker is his Friend Marie [phone]. Prior to hospitalization, patient was independent with ADLs and utilized a wheelchair to assist with ambulation. Patient also has a FWW, but reports he dislikes using it. ?[facility]. PCP: Alex Wan. During initial assessment, patient disclosed SI and method of overdose to end life if help is not obtained. SS inquired about SI frequency and if he had plan to end life. Patient stated, ?ignore I said that.? SS informed Dr. Neff ?and Dr. Briggs patient may need mental health eval before discharging. Patient disclosed history of depression and anxiety. Patient requested assistance with housing. SS explained to patient SS can provide resources to patient for detention, mental health support, etc. but cannot request housing assistance such as section 8 or subsidized housing. SS stated if SNF is recommended by hospitalist team, SS to assist with referrals Next of kin: Friend Marie [phone]. Discharge plan: TBD, transportation will be needed. .
[2024-08-05] MEDS: ATORVASTATIN CALCIUM 20 MG TABLET 40 MG PO (20:26)
[2024-08-05] MEDS: LORazepam 2 MG/ML VIAL 1 MG IV (20:27)
[2024-08-05] MEDS: QUEtiapine FUMARATE 25 MG TABLET PO (20:27)
[2024-08-05] MEDS: PANTOPRAZOLE 20 MG TABLET PO (20:27)
--- NOTE | 2024-08-05 20:52 | PC.NURSE ---
spoke MD about social service note and earlier progress note about patient stating if i dont get help, ill just take all my pills . verbal orders for psych hold and 1 to 1. I went to patient to gather more info on SI and HI, patient initially denies any SI or HI. After I said that the social service mentioned his statement from earlier, the pt said oh yes, you know i am just tired of living outside so thats probably whats going to happen. i just want a home . Room cleared and 1:1 placed. patient initially agitated and took a cigarette from his personal belongings and started chewing it. i reinforced that chewing or smoking tobacco in the facility is not allowed. Pt verbally responded, they said i cant smoke it, but no one told me that i cant chew. i wont chew it anymore new nicotine patch applied. MD and fuel house attendant made aware.
--- NOTE | 2024-08-05 21:30 | EVENTNT_ITS ---
Documentation for date of: 08/05/24 Event Note Event Note: Received a call by charge nurse concerning 58-year-old male for suicidal ideation. As per nurse patient had been previously seen by social workers and it was noted that he had some suicidal ideation, but on chart review when they team attending spoke with the patient he did not have any suicidal ideation or any plan at this time. When I spoke with the patient given charge nurses concern and asked for a one-to-one sitter and suicidal ideation given that when speaking to the patient patient was very emotional and he did have suicidal ideation at this time. He stated I will take all bottle full of pills from a bag when asked why he stated that he feels he is not getting help and that he would not like to go back to the streets and that he would like a home. At this time patient stated he had never had any thoughts about killing himself or harming anybody else that he has no prior history of harming self. Patient did mention that he was getting tired of not being helped and that life from the street was hard therefore that he had to go back to the street he had thoughts about harming himself with taking multiple pills at once. Otherwise patient was understanding when I told him that these were alarming thoughts and concerning for suicide ideation therefore we will have to take precautions and he stated that he understood, but that he just wants some help and not be discharged back to the streets. Patient will have a one-to-one sitter and suicide precautions were taken. Will let the team know and we will have social workers speak with the patient concerning possible placement once able to discharge and will have a team consult crisis to ensure patient safety. Case disclosed with Attending Dr. Enrique Casey PGY1 Disclaimer: Even though this this note was dictated by speech recognition and even though it was carefully revised there may still be minor errors in shared services representative due to voice recognition software.
[2024-08-06] VITALS (12 sets, daily range): BP systolic 109–120; BP diastolic 67–79; PULSE 66–88; RESP 14–18; TEMP 36.2–36.7; O2SAT 92–99; BMI 21.9; BMI 14.0
[2024-08-06] MEDS: LORazepam 0.5 MG TABLET PO (05:25)
[2024-08-06] MEDS: oxyCODONE/APAP 5/325 TABLET 1 TAB PO ×2 (05:28→15:50)
[2024-08-06 05:55] LABS: Basophils # (Auto) 0.1 Thou/mm3 (0.0-0.2); Basophils % (Auto) 1 % (0-2.5); Eosinophils # (Auto) 0.5 Thou/mm3 (0.0-0.5); Eosinophils % (Auto) 8 % (0-10); Hematocrit 41.6 % (41.0-53.0); Hemoglobin 14.5 g/dL (13.5-16.0); Immature Granulocytes % (Auto) 1 % (0-0); Immature Granulocytes Auto 0.03 Thou/mm3 (0.00-0.00); Lymphocytes % (Auto) 31 % (10-50); Mean Corpuscular HGB Conc 34.9 g/dl (31.0-37.0); Mean Corpuscular Hemoglobin 32.1 pg (25.0-35.0); Mean Corpuscular Volume 92 fL (80-100); Monocytes % (Auto) 16 % (0-12); Neutrophils # (Auto) 2.8 Thou/mm3 (1.8-7.7); Neutrophils % (Auto) 44 % (37-80); Nucleated Red Blood Cell % 0 /100 WBC (0); Platelet Count 252 Thou/mm3 (140-440); RDW Standard Deviation 46.1 fL (35.1-43.9); Red Blood Count 4.52 Miln/mm3 (4.50-5.90); White Blood Count 6.3 Thou/mm3 (3.8-10.6)
[2024-08-06 06:22] LABS: Alanine Aminotransferase 35 U/L (10-49); Albumin, Serum 3.6 gm/dL (3.5-5.0); Albumin/Globulin Ratio 1.4 (1.2-2.2); Alkaline Phosphatase 86 U/L (46-116); Anion Gap 9 (7-16); Aspartate Amino Transferase 32 U/L (0-34); BUN/Creatinine Ratio 9 Ratio (12-20); Bilirubin,Total 0.5 mg/dL (0.3-1.2); Blood Urea Nitrogen 7 mg/dL (9-23); Calcium 9.2 mg/dL (8.3-10.6); Calcium (Corrected) 9.5 mg/dL (8.5-10.1); Carbon Dioxide 25.7 mMol/L (20.0-31.0); Chloride 107 mMol/L (98-107); Creatinine (Component) 0.8 mg/dL (0.6-1.3); Globulin 2.5 gm/dL (2.3-3.5); Glucose 98 mg/dL (74-106); Osmolality,Calculated 281 (275-295); Potassium 3.9 mMol/L (3.4-5.1); Sodium 142 mMol/L (136-145); Total Protein 6.1 gm/dL (5.7-8.2); eGFR > 60 See Note
[2024-08-06] MEDS: FOLIC ACID 1 MG TABLET PO ×2 (08:41→20:49)
[2024-08-06] MEDS: THIAMINE 100 MG TABLET PO ×2 (08:41→20:49)
--- NOTE | 2024-08-06 10:36 | PC.SS ---
Follow up note: SS received call from PT and they completed the evaluation. Recommended SNF short term. SS will submit request on [facility] for placement. Patient ready for d/c. ASW will complete crisis eval prior to d/c.
--- NOTE | 2024-08-06 11:41 | PC.CC ---
NILAY Early received a call from LEON Quinones who reported that once pt is medically cleared she will inform field underwriter to move forward forward with a MH assessment.
--- NOTE | 2024-08-06 12:42 | PC.PT ---
Patient is safe to ambulate to the bathroom using a FWW, his helmet, and 1 staff assist. RN and FACS TEACHER made aware.
--- NOTE | 2024-08-06 13:43 | ESPR_ITS ---
Documentation for date of: 08/06/24 Subjective Subjective Interval history: Patient is seen and examined at bedside Overnight, patient had suicidal ideation for which patient was kept on one-on-one sitter and suicide precautions, pending crisis evaluation Complaining of pulsating headaches, on left side at the site of surgery Vitals are stable. Physical examination remains unchanged from the day of admission Labs did not show any significant abnormality Pending SNF placement Exam Vital Signs Temp Pulse Resp BP Pulse Ox O2 Del Method 97.1 F 79 18 112/77 93 L Room Air 08/06/24 11:39 08/06/24 11:39 08/06/24 11:39 08/06/24 11:39 08/06/24 11:39 08/06/24 07:57 Narrative Exam General: Awake. disheveled HEENT: Normocephalic, atraumatic, mucous membranes moist. Heart: Regular rate and rhythm, no murmurs. Lungs: Clear to auscultation with no wheezing or crackles. Abdomen: Soft, nondistended, nontender, positive bowel sounds. ?No guarding or rebound tenderness. Neurologic: Alert and oriented x3, noted weakness in the right upper and lower extremity, 4/5 and patient able to move all 4 extremities. Extremities: No edema. Skin: No rash or ecchymoses. Objective Labs 08/06/24 04:50 08/06/24 04:50 Labs: Laboratory Results - last 24 hr 08/06/24 04:50 WBC 6.3 RBC 4.52 Hgb 14.5 Hct 41.6 MCV 92 MCH 32.1 MCHC 34.9 RDW Std Deviation 46.1 H Plt Count 252 Neut % (Auto) 44 Lymph % (Auto) 31 Bergen % (Auto) 16 H Eos % (Auto) 8 Baso % (Auto) 1 Neut # (Auto) 2.8 Lymph # (Auto) 2.0 Bergen # (Auto) 1.0 H Eos # (Auto) 0.5 Baso # (Auto) 0.1 Immature Gran # (Auto) 0.03 H Absolute Nucleated RBC 0.00 Immature Gran % 1 H Nucleated RBC % 0 Sodium 142 Potassium 3.9 Chloride 107 Carbon Dioxide 25.7 Anion Gap 9 BUN 7 L Creatinine 0.8 Estim Creat Clear Calc 100.0 eGFR > 60 BUN/Creatinine Ratio 9 L Glucose 98 Calculated Osmolality 281 Calcium 9.2 Corrected Calcium 9.5 Total Bilirubin 0.5 AST 32 ALT 35 Alkaline Phosphatase 86 Total Protein 6.1 Albumin 3.6 Globulin 2.5 Albumin/Globulin Ratio 1.4 Quality Measures Quality Measures none Assessment & Plan Assessment Current Active Medications: Generic Name Dose Route Start Last Admin Trade Name Freq PRN Reason Stop Dose Admin Acetaminophen 650 mg 08/04/24 00:55 Acetaminophen 325 Mg Tablet PO 09/03/24 00:54 Q6H PRN PAIN SCALE 1-3 (mild Albuterol/Ipratropium 3 ml 08/05/24 08:20 Albuterol/Ipratropium (Duoneb) Rt Qi 3 Ml Nebu INH 09/04/24 12:59 Q6HRRT PRN sob Atorvastatin Calcium 40 mg 08/04/24 21:00 08/05/24 20:26 Atorvastatin Calcium 20 Mg Tablet PO 09/03/24 20:59 40 mg HS YELENA Administration Folic Acid 1 mg 08/04/24 21:00 08/06/24 08:41 Folic Acid 1 Mg Tablet PO 08/09/24 20:59 1 mg BID YELENA Administration Lorazepam 0.5 mg 08/04/24 15:28 08/05/24 18:14 Lorazepam 0.5 Mg Tablet PO 08/09/24 15:27 0.5 mg Q4HR PRN Administration CIWA Score 2-6 Lorazepam 1 mg 08/04/24 15:28 Lorazepam 0.5 Mg Tablet PO 08/09/24 15:27 Q4HR PRN CIWA SCORE 7-11 Lorazepam 2 mg 08/04/24 15:28 08/04/24 16:53 Lorazepam 0.5 Mg Tablet PO 08/09/24 15:27 2 mg Q4HR PRN Administration CIWA SCORE 12-15 Nicotine 21 mg 08/06/24 09:08 Nicotine Patch 21 Mg/24 Hr Patch.Td24 TOP 09/04/24 00:54 QDAY YELENA Ondansetron HCl 4 mg 08/04/24 00:55 08/04/24 16:53 Ondansetron Inj 2 Mg/Ml Inj 2 Ml IVP 09/03/24 00:54 4 mg Q6H PRN Administration NAUSEA OR VOMITING Protocol Oxycodone/Acetaminophen 1 tab 08/04/24 00:55 08/06/24 05:28 Oxycodone/Apap 5/325 Tablet PO 08/09/24 00:54 1 tab Q6H PRN Administration PAIN SCALE 4-6 (Moderate Pantoprazole Sodium 20 mg 08/05/24 21:00 08/05/24 20:27 Pantoprazole 20 Mg Tablet PO 09/04/24 20:59 20 mg HS YELENA Administration Quetiapine Fumarate 25 mg 08/04/24 21:00 08/05/24 20:27 Quetiapine Fumarate 25 Mg Tablet PO 09/03/24 20:59 25 mg HS YELENA Administration Thiamine HCl 100 mg 08/04/24 21:00 08/06/24 08:41 Thiamine 100 Mg Tablet PO 08/09/24 20:59 100 mg BID YELENA Administration Plan 58-year-old male with past medical history of left craniectomy secondary to head trauma about 1 year ago, alcohol use disorder, remote history of polysubstance use disorder, tobacco use disorder, COPD homelessness presenting to the ED with increased right-sided weakness will be admitted for workup for possible new intracranial process, teleneurology consulted requesting MRI without contrast. #Right-sided weakness - stroke ruled out #Frequent falls - likely due to weakness and drugs, alcohol abuse #History of craniectomy Patient has extensive history of craniectomy secondary to trauma about 1 year ago completed procedure at [facility] Patient's was staying at [facility] which is some sort of assisted care living facility for physical therapy; however, was left ago due to some disagreement Patient has several episodes of falls since being discharged from the assisted care living facility and is currently homeless On examination, patient has right sided weakness as noted in physical exam Chest x-ray shows no active disease Head CT shows no acute pathology Teleneurology was consulted in the ED which recommended MRI brain without contrast Brain MRI - Did not show any infarct Plan: Will hold off on anticoagulation antiplatelet at this time as recommended by teleneurology Physical therapy recommended short term SNF placement, pending placement #Psychiatric history Patient is on Seroquel and bupropion per pill bottles bedside Plan -Resumed his home medications #Alcohol use disorder #Polysubstance use disorder #Tobacco use disorder As stated above, patient has remote history of polysubstance use disorder but currently actively smokes cigarettes and drinks several cans of beer a day Last drink was on 08/03, states that he drank 1 beer Denies drug use at this time, U tox is positive for barbiturates and benzodiazepines and urine alcohol is at 60.8 mg/dL Plan: office services coordinator consulted Nicotine patch for tobacco use disorder On CIWA protocol and librium 10mg orally thrice daily, will taper #Possible liver disease? As stated above, patient has been told in the past that he is a liver disorder On labs, patient's has unremarkable liver function test Plan: Monitor for any acute changes #COPD Chronic medical condition, not currently in an exacerbation Patient appears to only be on albuterol rescue inhaler Health Maintenance: Lines: PIV Diet: Cardiac Bowel: Not needed GI prophylaxis: Not needed DVT prophylaxis: SCDs Dispo: Pending placement Code: Full Patient plan of care was discussed with the attending physician, Dr. Brigitte Michaels, PGY1 Attending Provider Attestation/Addendum I have discussed and was present for the essential components of the history, physical examination, diagnosis, and treatment plan with the resident. I agree with the patient's care as documented by the resident and amended herein by me. Santiago Briggs DO. Patient seen and evaluated this AM. No acute events overnight. Patient pending SNF authorization, once facility is lockdown, crisis team will evaluate the patient prior to actual discharge. Although this document has been carefully reviewed, there may still be some phonetic and other typographical errors. These errors are purely grammatical due to imperfections in the software program and should not be construed in any way to compromise the substance of the patient's medical care during this visit.
[2024-08-06] MEDS: chlordiazePOXIDE HCl 10 MG CAPSULE PO ×2 (15:50→22:01)
[2024-08-06 16:39] LABS: Thyroid Stimulating Hormone 2.95 uIU/mL (0.55-4.78)
--- NOTE | 2024-08-06 19:10 | PC.NURSE ---
PT C/O SEVERE HUYNH 09/30. OFFERED TYLENOL BUT PT STATED TYLENOL AND IBUPROFEN WILL NOT HELP AND REQUESTING PERCOCET. DR. BENNIE KHAN NOTIFIED AND NEW ORDER RECEIVED.
[2024-08-06] MEDS: LORazepam 0.5 MG TABLET 1 MG PO (19:16)
[2024-08-06] MEDS: HYDROcodone/APAP 5/325 TABLET 1 TAB PO (19:16)
[2024-08-06] MEDS: ATORVASTATIN CALCIUM 20 MG TABLET 40 MG PO (20:49)
[2024-08-06] MEDS: QUEtiapine FUMARATE 25 MG TABLET PO (20:49)
[2024-08-06] MEDS: PANTOPRAZOLE 20 MG TABLET PO (20:49)
[2024-08-06] MEDS: BuPROPion HCL 100 MG TABLET PO (20:49)
--- NOTE | 2024-08-06 22:03 | PC.NURSE ---
LEFT SHOULDER NICOTINE PATCH OFF.
[2024-08-07] VITALS (9 sets, daily range): BP systolic 116–127; BP diastolic 75–88; PULSE 68–87; RESP 14–19; TEMP 36.2–36.6; O2SAT 95–98; BMI 21.7; BMI 21.6
[2024-08-07] MEDS: oxyCODONE/APAP 5/325 TABLET 1 TAB PO ×4 (01:13→19:59)
[2024-08-07] MEDS: chlordiazePOXIDE HCl 10 MG CAPSULE PO ×2 (05:37→17:50)
[2024-08-07 05:59] LABS: Basophils # (Auto) 0.1 Thou/mm3 (0.0-0.2); Basophils % (Auto) 1 % (0-2.5); Eosinophils # (Auto) 0.4 Thou/mm3 (0.0-0.5); Eosinophils % (Auto) 6 % (0-10); Hematocrit 45.7 % (41.0-53.0); Hemoglobin 15.8 g/dL (13.5-16.0); Immature Granulocytes % (Auto) 1 % (0-0); Immature Granulocytes Auto 0.04 Thou/mm3 (0.00-0.00); Lymphocytes # (Auto) 2.3 Thou/mm3 (1.0-4.8); Lymphocytes % (Auto) 34 % (10-50); Mean Corpuscular HGB Conc 34.6 g/dl (31.0-37.0); Mean Corpuscular Hemoglobin 31.9 pg (25.0-35.0); Mean Corpuscular Volume 92 fL (80-100); Monocytes % (Auto) 16 % (0-12); Neutrophils # (Auto) 2.9 Thou/mm3 (1.8-7.7); Neutrophils % (Auto) 43 % (37-80); Nucleated Red Blood Cell % 0 /100 WBC (0); Platelet Count 304 Thou/mm3 (140-440); RDW Standard Deviation 46.7 fL (35.1-43.9); Red Blood Count 4.95 Miln/mm3 (4.50-5.90); White Blood Count 6.7 Thou/mm3 (3.8-10.6)
[2024-08-07 06:03] LABS: Alanine Aminotransferase 33 U/L (10-49); Albumin, Serum 3.7 gm/dL (3.5-5.0); Albumin/Globulin Ratio 1.5 (1.2-2.2); Alkaline Phosphatase 84 U/L (46-116); Anion Gap 11 (7-16); Aspartate Amino Transferase 30 U/L (0-34); BUN/Creatinine Ratio 10 Ratio (12-20); Bilirubin,Total 0.4 mg/dL (0.3-1.2); Blood Urea Nitrogen 8 mg/dL (9-23); Calcium 9.1 mg/dL (8.3-10.6); Calcium (Corrected) 9.3 mg/dL (8.5-10.1); Carbon Dioxide 25.9 mMol/L (20.0-31.0); Chloride 107 mMol/L (98-107); Creatinine (Component) 0.8 mg/dL (0.6-1.3); Estimated Creatinine Clearance 98.8 mL/min (>60); Globulin 2.5 gm/dL (2.3-3.5); Glucose 102 mg/dL (74-106); Osmolality,Calculated 285 (275-295); Potassium 4.8 mMol/L (3.4-5.1); Sodium 144 mMol/L (136-145); Total Protein 6.2 gm/dL (5.7-8.2); eGFR > 60 See Note
[2024-08-07] MEDS: POLYETHYLENE GLYCOL 17 GM PACKET PO (08:05)
[2024-08-07] MEDS: MULTIVITAMINS TABLET 1 TAB PO (08:05)
[2024-08-07] MEDS: BuPROPion HCL 100 MG TABLET PO ×2 (08:05→20:53)
[2024-08-07] MEDS: FOLIC ACID 1 MG TABLET PO ×2 (08:05→20:52)
[2024-08-07] MEDS: NICOTINE PATCH 21 MG/24 HR PATCH.TD24 TOP (08:06)
[2024-08-07] MEDS: SENNA TABLET 1 TAB PO (08:22)
[2024-08-07] MEDS: bisacodyL 5 MG TABEC PO (08:23)
--- NOTE | 2024-08-07 11:37 | ESPR_ITS ---
<Statement entered by Ronnie Neff MD - 08/08/24 00:32> I discussed with and supervised the international flight attendant physician involved in the care of this patient. Patient assessment and plan was discussed with entire medicine team, including my attending. I agree with the assessment and plan as documented by international flight attendant doctor. Patient care was discussed with my attending physician Dr. Brigitte Neff, PGY-2 Documentation for date of: 08/07/24 Subjective Subjective Interval history: Patient is seen and examined at bedside No acute overnight events. Denies any other complaints Vitals are stable. Physical examination remains unchanged Lab values are within normal limits. Patent is supposed to go to [facility] for cap placement for craniotomy Still pending SNF placement Exam Vital Signs Temp Pulse Resp BP Pulse Ox O2 Del Method 97.4 F 76 18 122/77 96 Room Air 08/07/24 08:00 08/07/24 08:00 08/07/24 08:00 08/07/24 08:00 08/07/24 08:00 08/07/24 08:00 Narrative Exam General: Awake. HEENT: Normocephalic, atraumatic, mucous membranes moist. Heart: Regular rate and rhythm, no murmurs. Lungs: Clear to auscultation with no wheezing or crackles. Abdomen: Soft, nondistended, nontender, positive bowel sounds. ?No guarding or rebound tenderness. Neurologic: Alert and oriented x3, noted weakness in the right upper and lower extremity, 4/5 and patient able to move all 4 extremities. noted craniotomy on left side Extremities: No edema. Skin: No rash or ecchymoses. Objective Labs 08/07/24 04:45 08/07/24 04:45 Labs: Laboratory Results - last 24 hr 08/06/24 08/07/24 04:50 04:45 WBC 6.7 RBC 4.95 Hgb 15.8 Hct 45.7 MCV 92 MCH 31.9 MCHC 34.6 RDW Std Deviation 46.7 H Plt Count 304 D Neut % (Auto) 43 Lymph % (Auto) 34 Hendricks % (Auto) 16 H Eos % (Auto) 6 Baso % (Auto) 1 Neut # (Auto) 2.9 Lymph # (Auto) 2.3 Hendricks # (Auto) 1.0 H Eos # (Auto) 0.4 Baso # (Auto) 0.1 Immature Gran # (Auto) 0.04 H Absolute Nucleated RBC 0.00 Immature Gran % 1 H Nucleated RBC % 0 Sodium 144 Potassium 4.8 D Chloride 107 Carbon Dioxide 25.9 Anion Gap 11 BUN 8 L Creatinine 0.8 Estim Creat Clear Calc 98.8 eGFR > 60 BUN/Creatinine Ratio 10 L Glucose 102 Calculated Osmolality 285 Calcium 9.1 Corrected Calcium 9.3 Total Bilirubin 0.4 AST 30 ALT 33 Alkaline Phosphatase 84 Total Protein 6.2 Albumin 3.7 Globulin 2.5 Albumin/Globulin Ratio 1.5 TSH 2.95 Quality Measures Quality Measures none Assessment & Plan Assessment Current Active Medications: Generic Name Dose Route Start Last Admin Trade Name Freq PRN Reason Stop Dose Admin Acetaminophen 650 mg 08/04/24 00:55 Acetaminophen 325 Mg Tablet PO 09/03/24 00:54 Q6H PRN PAIN SCALE 1-3 (mild Albuterol/Ipratropium 3 ml 08/05/24 08:20 Albuterol/Ipratropium (Duoneb) Rt Qi 3 Ml Nebu INH 09/04/24 12:59 Q6HRRT PRN sob Atorvastatin Calcium 40 mg 08/04/24 21:00 08/06/24 20:49 Atorvastatin Calcium 20 Mg Tablet PO 09/03/24 20:59 40 mg HS YELENA Administration Bisacodyl 5 mg 08/07/24 09:00 08/07/24 08:23 Bisacodyl 5 Mg Tabec PO 09/06/24 08:59 5 mg QDAY YELENA Administration Protocol Bupropion HCl 100 mg 08/06/24 21:00 08/07/24 08:05 Bupropion Hcl 100 Mg Tablet PO 09/05/24 20:59 100 mg BID YELENA Administration Chlordiazepoxide HCl 10 mg 08/07/24 18:00 Chlordiazepoxide Hcl 10 Mg Capsule PO 08/12/24 17:59 BID YELENA Folic Acid 1 mg 08/04/24 21:00 08/07/24 08:05 Folic Acid 1 Mg Tablet PO 08/09/24 20:59 1 mg BID YELENA Administration Gabapentin 100 mg/ Gabapentin 1,000 mg 08/06/24 14:00 08/07/24 05:37 900 mg PO 09/05/24 13:59 1,000 mg TID YELENA Administration Multivitamins 1 tab 08/07/24 09:00 08/07/24 08:05 Multivitamins Tablet PO 09/06/24 08:59 1 tab QDAY YELENA Administration Nicotine 21 mg 08/06/24 09:08 08/07/24 08:06 Nicotine Patch 21 Mg/24 Hr Patch.Td24 TOP 09/04/24 00:54 21 mg QDAY YELENA Administration Ondansetron HCl 4 mg 08/04/24 00:55 08/04/24 16:53 Ondansetron Inj 2 Mg/Ml Inj 2 Ml IVP 09/03/24 00:54 4 mg Q6H PRN Administration NAUSEA OR VOMITING Protocol Oxycodone/Acetaminophen 1 tab 08/04/24 00:55 08/07/24 07:20 Oxycodone/Apap 5/325 Tablet PO 08/09/24 00:54 1 tab Q6H PRN Administration PAIN SCALE 4-6 (Moderate Pantoprazole Sodium 20 mg 08/05/24 21:00 08/06/24 20:49 Pantoprazole 20 Mg Tablet PO 09/04/24 20:59 20 mg HS YELENA Administration Polyethylene Glycol 17 gm 08/07/24 09:00 08/07/24 08:05 Polyethylene Glycol 17 Gm Packet PO 09/06/24 08:59 17 gm QDAY YELENA Administration Quetiapine Fumarate 25 mg 08/04/24 21:00 08/06/24 20:49 Quetiapine Fumarate 25 Mg Tablet PO 09/03/24 20:59 25 mg HS YELENA Administration Sennosides 1 tab 08/07/24 09:00 08/07/24 08:22 Senna Tablet PO 09/06/24 08:59 1 tab QDAY YELENA Administration Protocol Plan 58-year-old male with past medical history of left craniectomy secondary to head trauma about 1 year ago, alcohol use disorder, remote history of polysubstance use disorder, tobacco use disorder, COPD homelessness presenting to the ED with increased right-sided weakness will be admitted for workup for possible new intracranial process, teleneurology consulted requesting MRI without contrast. #Right-sided weakness - stroke ruled out #Frequent falls - likely due to weakness and drugs, alcohol abuse #History of craniectomy Patient has extensive history of craniectomy secondary to trauma about 1 year ago completed procedure at [facility] Patient's was staying at [facility] which is some sort of assisted care living facility for physical therapy; however, was left ago due to some disagreement Patient has several episodes of falls since being discharged from the assisted care living facility and is currently homeless On examination, patient has right sided weakness as noted in physical exam Chest x-ray shows no active disease Head CT shows no acute pathology Teleneurology was consulted in the ED which recommended MRI brain without contrast Brain MRI - Did not show any infarct Plan: Physical therapy recommended short term SNF placement, pending placement #Psychiatric history Patient is on Seroquel and bupropion per pill bottles bedside Plan -Resumed his home medications #Alcohol use disorder #Polysubstance use disorder #Tobacco use disorder As stated above, patient has remote history of polysubstance use disorder but currently actively smokes cigarettes and drinks several cans of beer a day Last drink was on 08/03, states that he drank 1 beer Denies drug use at this time, U tox is positive for barbiturates and benzodiazepines and urine alcohol is at 60.8 mg/dL Plan: program services assistant consulted Nicotine patch for tobacco use disorder On librium 10mg orally twice daily, will taper tomorrow #Possible liver disease? As stated above, patient has been told in the past that he is a liver disorder On labs, patient's has unremarkable liver function test Plan: Monitor for any acute changes #COPD Chronic medical condition, not currently in an exacerbation Patient appears to only be on albuterol rescue inhaler Health Maintenance: Lines: PIV Diet: Cardiac Bowel: Not needed GI prophylaxis: Not needed DVT prophylaxis: SCDs Dispo: Pending placement Code: Full Patient plan of care was discussed with the attending physician, Dr. Briggs and senior resident Dr. Tawanda Michaels, PGY1 Attending Provider Attestation/Addendum I have discussed and was present for the essential components of the history, physical examination, diagnosis, and treatment plan with the resident. I agree with the patient's care as documented by the resident and amended herein by me. Santiago Briggs DO. Patient cleared for discharge to SNF, cleared by social work for SI/HI, SNF authorization pending Although this document has been carefully reviewed, there may still be some phonetic and other typographical errors. These errors are purely grammatical due to imperfections in the software program and should not be construed in any way to compromise the substance of the patient's medical care during this visit.
--- NOTE | 2024-08-07 12:23 | PC.SS ---
Follow up note: SS sent off inquiry through [employer] looking for SNF placement daina Moya Declines for all facilities except [facility] in [place] who is considering. SS asked [facility] to re-evaluate patient. SS contacted PT to re-evaluate. PT recomends SNF short term again. Patient unstable. SS met with patient to provide updated information. Patient was appropriate during conversation. Patient eager to be placed and wants help. Patient states he has two social workers from [facility] that are helping him with his appointments at [facility] for craniotomy follow up and future placement at an assisted living. Patient has been scheduling his appointments through [facility]. He states he uses a wheelchair. He was previously at [facility] for about 5 months and then discharged. Patient states he then went back on the streets. Patient receives henriquez assistance and food stamps. He has applied for Social Security disability and its in pending status. Patient has a son who resides in [place]. Son is Amrik Daniels. They do not speak regularly. No contact phone number. Patient states his friend, Marie is his alt medical decision maker. Dustin, clinical social work aide @ [phone] assisting with future placement at an assisted living Lavern clinical social work aide @ [phone] for follow up appointments at [facility]
--- NOTE | 2024-08-07 15:45 | PC.SS ---
ASW Alba and [employer] student Abigail Duke met with the patient to conduct a mental health evaluation per medical team's request as the patient had made some SI statements. Patient is a 58-year old male who presented to hospital services for right side weakness. Upon contact with the patient he appears to be alert and oriented to self, place and situation. Patient was informed of writers role and reason for contact and was made aware of the limits of confidentiality. Patient presents pleasant, of good demeanor and able to engage in assessment and answer questions appropriately. Patient was able to confirm the address on facesheet and indicates that is a mailing address to his friend's Timo's home who has allowed him to receive mail there. Patient informs he is currently homeless and has been living on the streets for about six months now. Per patient before this, he was at a facility in [place] where he shared some indifferences with staff and was asked to leave the facility. Per patient he is currently receiving TANF-henriquez aid assistance and SNAP-food stamps on a monthly basis. Per patient is also in the process of disability. Patient informs he has a wheelchair used to get around in the community, per patient he is able to ambulate very little. Patient informs he was getting food and showering at [employer] food restaurant with sponge baths. Patient informs he sees Dr. Peña for primary care at [facility] in [place] and reports having a medical history of COPD and liver problems. Patient indicates in case of an emergency his friend, Marie could be contacted. Patient informs Marie has helped him with obtaining clothing and sleeping back in the past while living on the streets. Patient reports he was recently baptized and informs he is aligned with his latter day for additional taras support. Patient states he was previously diagnosed with Anxiety however unable to recall when or where. Patient also informs he takes psychotropic medication, however is not able to provide name of medications being taken. Patient denies previous suicide attempts or any history of being placed on a psychiatric hold. Patient denies substance use, informs he only drinks alcohol and chews cigarettes. Today, the patient is denying SI and HI. Patient is also denying audio and visual hallucinations. Patient informs he made a comment about wanting to overdose on pill medications as he was frustrated. Per patient he denies he has any plan or intent to end his life. The patient reports being frustrated with his living situation and is requesting assistance with finding assisted. Per patient he informs I was frustrated, I just want a home . Patient also states God doesn't want me to take my life . Patient became tearful when sharing this. Patient clarified that the statements he made regarding SI were out of frustration and denies any means of hurting himself or others. Patient informs he is receptive to mental health services and substance use resources. Additionally, the patient reports he is very happy and shares he has had a good experience with hospital staff being nice to him. After clinical consultation with [facility], Laura Elizondo, it was determined that the patient does not meet criteria for a 5150 hold. The patient is pending insurance authorization for SNF placement with [facility] at this time. Attending Dr. Briggs, medical team and JOSÉ Mims were updated on disposition plan status.
[2024-08-07] MEDS: PANTOPRAZOLE 20 MG TABLET PO (20:53)
[2024-08-07] MEDS: QUEtiapine FUMARATE 25 MG TABLET PO (20:53)
[2024-08-07] MEDS: ATORVASTATIN CALCIUM 20 MG TABLET 40 MG PO (20:53)
[2024-08-08] VITALS (8 sets, daily range): BP systolic 99–117; BP diastolic 69–79; PULSE 76–98; RESP 13–19; TEMP 36.2–36.9; O2SAT 93–97; BMI 22.4; BMI 14.0
[2024-08-08] MEDS: oxyCODONE/APAP 5/325 TABLET 1 TAB PO ×4 (04:18→23:54)
[2024-08-08] MEDS: POLYETHYLENE GLYCOL 17 GM PACKET PO (08:25)
[2024-08-08] MEDS: bisacodyL 5 MG TABEC PO (08:27)
[2024-08-08] MEDS: FOLIC ACID 1 MG TABLET PO ×2 (08:27→20:09)
[2024-08-08] MEDS: chlordiazePOXIDE HCl 10 MG CAPSULE PO (08:27)
[2024-08-08] MEDS: BuPROPion HCL 100 MG TABLET PO ×2 (08:28→20:09)
[2024-08-08] MEDS: SENNA TABLET 1 TAB PO (08:28)
[2024-08-08] MEDS: MULTIVITAMINS TABLET 1 TAB PO (08:28)
[2024-08-08] MEDS: NICOTINE PATCH 21 MG/24 HR PATCH.TD24 TOP (08:29)
--- NOTE | 2024-08-08 09:43 | PC.SS ---
Follow up note: Patient has been cleared by our crisis team. [facility] closed. [facility] accepted patient. Pending auth. SS called to follow up this morning and still pending
--- NOTE | 2024-08-08 15:29 | ESPR_ITS ---
<Statement entered by Ronnie Neff MD - 08/09/24 07:44> I discussed with and supervised the director internal communications physician involved in the care of this patient. Patient assessment and plan was discussed with entire medicine team, including my attending. I agree with the assessment and plan as documented by director internal communications doctor. Patient care was discussed with my attending physician Dr. Brigitte Neff, PGY-2 Documentation for date of: 08/08/24 Subjective Subjective Interval history: Patient is seen and examined at bedside No acute overnight events. Denies any other complaints Vitals are stable. Patient was accepted to facility, pending authorization Exam Vital Signs Temp Pulse Resp BP Pulse Ox O2 Del Method O2 Flow Rate 97.4 F 86 13 115/73 95 Room Air 97 08/08/24 12:00 08/08/24 12:00 08/08/24 12:00 08/08/24 12:00 08/08/24 12:00 08/08/24 12:00 08/07/24 18:36 Narrative Exam General: Awake. HEENT: Normocephalic, atraumatic, mucous membranes moist. Heart: Regular rate and rhythm, no murmurs. Lungs: Clear to auscultation with no wheezing or crackles. Abdomen: Soft, nondistended, nontender, positive bowel sounds. ?No guarding or rebound tenderness. Neurologic: Alert and oriented x3, noted weakness in the right upper and lower extremity, 4/5 and patient able to move all 4 extremities. noted craniotomy on left side Extremities: No edema. Skin: No rash or ecchymoses. Objective Labs 08/07/24 04:45 08/07/24 04:45 Quality Measures Quality Measures none Assessment & Plan Assessment Current Active Medications: Generic Name Dose Route Start Last Admin Trade Name Freq PRN Reason Stop Dose Admin Acetaminophen 650 mg 08/04/24 00:55 Acetaminophen 325 Mg Tablet PO 09/03/24 00:54 Q6H PRN PAIN SCALE 1-3 (mild Albuterol/Ipratropium 3 ml 08/05/24 08:20 Albuterol/Ipratropium (Duoneb) Rt Qi 3 Ml Nebu INH 09/04/24 12:59 Q6HRRT PRN sob Atorvastatin Calcium 40 mg 08/04/24 21:00 08/07/24 20:53 Atorvastatin Calcium 20 Mg Tablet PO 09/03/24 20:59 40 mg HS YELENA Administration Bisacodyl 5 mg 08/07/24 09:00 08/08/24 08:27 Bisacodyl 5 Mg Tabec PO 09/06/24 08:59 5 mg QDAY YELENA Administration Protocol Bupropion HCl 100 mg 08/06/24 21:00 08/08/24 08:28 Bupropion Hcl 100 Mg Tablet PO 09/05/24 20:59 100 mg BID YELENA Administration Chlordiazepoxide HCl 10 mg 08/07/24 18:00 08/08/24 08:27 Chlordiazepoxide Hcl 10 Mg Capsule PO 08/12/24 17:59 10 mg BID YELENA Administration Folic Acid 1 mg 08/04/24 21:00 08/08/24 08:27 Folic Acid 1 Mg Tablet PO 08/09/24 20:59 1 mg BID YELENA Administration Gabapentin 100 mg/ Gabapentin 1,000 mg 08/06/24 14:00 08/08/24 13:39 900 mg PO 09/05/24 13:59 1,000 mg TID YELENA Administration Multivitamins 1 tab 08/07/24 09:00 08/08/24 08:28 Multivitamins Tablet PO 09/06/24 08:59 1 tab QDAY YELENA Administration Nicotine 21 mg 08/06/24 09:08 08/08/24 08:29 Nicotine Patch 21 Mg/24 Hr Patch.Td24 TOP 09/04/24 00:54 21 mg QDAY YELENA Administration Ondansetron HCl 4 mg 08/04/24 00:55 08/04/24 16:53 Ondansetron Inj 2 Mg/Ml Inj 2 Ml IVP 09/03/24 00:54 4 mg Q6H PRN Administration NAUSEA OR VOMITING Protocol Oxycodone/Acetaminophen 1 tab 08/04/24 00:55 08/08/24 10:50 Oxycodone/Apap 5/325 Tablet PO 08/09/24 00:54 1 tab Q6H PRN Administration PAIN SCALE 4-6 (Moderate Pantoprazole Sodium 20 mg 08/05/24 21:00 08/07/24 20:53 Pantoprazole 20 Mg Tablet PO 09/04/24 20:59 20 mg HS YELENA Administration Polyethylene Glycol 17 gm 08/07/24 09:00 08/08/24 08:25 Polyethylene Glycol 17 Gm Packet PO 09/06/24 08:59 17 gm QDAY YELENA Administration Quetiapine Fumarate 25 mg 08/04/24 21:00 08/07/24 20:53 Quetiapine Fumarate 25 Mg Tablet PO 09/03/24 20:59 25 mg HS YELENA Administration Sennosides 1 tab 08/07/24 09:00 08/08/24 08:28 Senna Tablet PO 09/06/24 08:59 1 tab QDAY YELENA Administration Protocol Plan 58-year-old male with past medical history of left craniectomy secondary to head trauma about 1 year ago, alcohol use disorder, remote history of polysubstance use disorder, tobacco use disorder, COPD homelessness presenting to the ED with increased right-sided weakness will be admitted for workup for possible new intracranial process, teleneurology consulted requesting MRI without contrast. #Right-sided weakness - stroke ruled out #Frequent falls - likely due to weakness and drugs, alcohol abuse #History of craniectomy Patient has extensive history of craniectomy secondary to trauma about 1 year ago completed procedure at [facility] [place] Patient's was staying at [facility] which is some sort of assisted care living facility for physical therapy; however, was left ago due to some disagreement Patient has several episodes of falls since being discharged from the assisted care living facility and is currently homeless On examination, patient has right sided weakness as noted in physical exam Chest x-ray shows no active disease Head CT shows no acute pathology Teleneurology was consulted in the ED which recommended MRI brain without contrast Brain MRI - Did not show any infarct Plan: Physical therapy recommended short term SNF placement, pending authorization from insurance #Psychiatric history Patient is on Seroquel and bupropion per pill bottles bedside Plan -Resumed his home medications #Alcohol use disorder #Polysubstance use disorder #Tobacco use disorder As stated above, patient has remote history of polysubstance use disorder but currently actively smokes cigarettes and drinks several cans of beer a day Last drink was on 08/03, states that he drank 1 beer Denies drug use at this time, U tox is positive for barbiturates and benzodiazepines and urine alcohol is at 60.8 mg/dL Plan: clinical services professional consulted Nicotine patch for tobacco use disorder On librium 10mg orally once daily #Possible liver disease? As stated above, patient has been told in the past that he is a liver disorder On labs, patient's has unremarkable liver function test Plan: Monitor for any acute changes #COPD Chronic medical condition, not currently in an exacerbation Patient appears to only be on albuterol rescue inhaler Health Maintenance: Lines: PIV Diet: Cardiac GI prophylaxis: Not needed DVT prophylaxis: SCDs Dispo: Pending placement Code: Full Patient plan of care was discussed with the attending physician, Dr. Briggs and senior resident Dr. Tawanda Michaels, PGY1 Attending Provider Attestation/Addendum I have discussed and was present for the essential components of the history, physical examination, diagnosis, and treatment plan with the resident. I agree with the patient's care as documented by the resident and amended herein by me. Santiago Briggs, DO. Patient seen and evaluated this AM. Patient doing well, no subjective complaints, no admission to /[place]. Patient has been accepted to [facility] however insurance authorization is still pending. Although this document has been carefully reviewed, there may still be some phonetic and other typographical errors. These errors are purely grammatical due to imperfections in the software program and should not be construed in any way to compromise the substance of the patient's medical care during this visit.
[2024-08-08] MEDS: QUEtiapine FUMARATE 25 MG TABLET PO (20:09)
[2024-08-08] MEDS: PANTOPRAZOLE 20 MG TABLET PO (20:09)
[2024-08-08] MEDS: ATORVASTATIN CALCIUM 20 MG TABLET 40 MG PO (20:09)
[2024-08-09] VITALS (8 sets, daily range): BP systolic 90–118; BP diastolic 63–83; PULSE 72–90; RESP 12–92; TEMP 36.5–37.2; O2SAT 92–98; BMI 22.1
[2024-08-09] MEDS: oxyCODONE/APAP 5/325 TABLET 1 TAB PO ×3 (08:10→19:37)
[2024-08-09] MEDS: FOLIC ACID 1 MG TABLET PO (08:10)
[2024-08-09] MEDS: POLYETHYLENE GLYCOL 17 GM PACKET PO (08:10)
[2024-08-09] MEDS: NICOTINE PATCH 21 MG/24 HR PATCH.TD24 TOP (08:10)
[2024-08-09] MEDS: bisacodyL 5 MG TABEC PO (08:11)
[2024-08-09] MEDS: BuPROPion HCL 100 MG TABLET PO ×2 (08:11→21:34)
[2024-08-09] MEDS: SENNA TABLET 1 TAB PO (08:11)
[2024-08-09] MEDS: MULTIVITAMINS TABLET 1 TAB PO (08:11)
[2024-08-09] MEDS: chlordiazePOXIDE HCl 10 MG CAPSULE PO (08:11)
--- NOTE | 2024-08-09 10:26 | PC.SS ---
SS reached out to Riddhi at [facility] to get update on auth, she stated she would contact me back. SS contacted [facility] [phone]- they are closed in observation of .
[2024-08-09] MEDS: MAGNESIUM CITRATE 300 ML BTL PO (10:56)
[2024-08-09] MEDS: bisacodyL 10 MG SUPP PR (10:58)
--- NOTE | 2024-08-09 12:41 | ESPR_ITS ---
<Statement entered by Ronnie Neff MD - 08/09/24 16:11> I discussed with and supervised the news internship physician involved in the care of this patient. Patient assessment and plan was discussed with entire medicine team, including my attending. I agree with the assessment and plan as documented by news internship doctor. Patient care was discussed with my attending physician Dr. Brigitte Neff, PGY-2 Documentation for date of: 08/09/24 Subjective Subjective Interval history: Patient is seen and examined at bedside Complaining of constipation, despite oral laxatives Vitals are stable. Physical examination remains unchanged Still pending authorization for the placement Patient was given Dulcolax rectal suppository and magnesium citrate. Will give enema if patient does not have a bowel movement Exam Vital Signs Temp Pulse Resp BP Pulse Ox O2 Del Method O2 Flow Rate 98.1 F 79 16 115/83 93 L Room Air 97 08/09/24 08:00 08/09/24 08:02 08/09/24 08:02 08/09/24 08:00 08/09/24 08:02 08/09/24 08:00 08/07/24 18:36 Narrative Exam General: Awake. HEENT: Normocephalic, atraumatic, mucous membranes moist. Heart: Regular rate and rhythm, no murmurs. Lungs: Clear to auscultation with no wheezing or crackles. Abdomen: Soft, nondistended, nontender, positive bowel sounds. ?No guarding or rebound tenderness. Neurologic: Alert and oriented x3, noted weakness in the right upper and lower extremity, 4/5 and patient able to move all 4 extremities. noted craniotomy on left side Extremities: No edema. Skin: No rash or ecchymoses. Objective Labs 08/07/24 04:45 08/07/24 04:45 Quality Measures Quality Measures none Assessment & Plan Assessment Current Active Medications: Generic Name Dose Route Start Last Admin Trade Name Freq PRN Reason Stop Dose Admin Acetaminophen 650 mg 08/04/24 00:55 Acetaminophen 325 Mg Tablet PO 09/03/24 00:54 Q6H PRN PAIN SCALE 1-3 (mild Albuterol/Ipratropium 3 ml 08/05/24 08:20 Albuterol/Ipratropium (Duoneb) Rt Qi 3 Ml Nebu INH 09/04/24 12:59 Q6HRRT PRN sob Atorvastatin Calcium 40 mg 08/04/24 21:00 08/08/24 20:09 Atorvastatin Calcium 20 Mg Tablet PO 09/03/24 20:59 40 mg HS YELENA Administration Bisacodyl 5 mg 08/07/24 09:00 08/09/24 08:11 Bisacodyl 5 Mg Tabec PO 09/06/24 08:59 5 mg QDAY YELENA Administration Protocol Bupropion HCl 100 mg 08/06/24 21:00 08/09/24 08:11 Bupropion Hcl 100 Mg Tablet PO 09/05/24 20:59 100 mg BID YELENA Administration Chlordiazepoxide HCl 10 mg 08/09/24 09:00 08/09/24 08:11 Chlordiazepoxide Hcl 10 Mg Capsule PO 08/14/24 08:59 10 mg QDAY YELENA Administration Folic Acid 1 mg 08/04/24 21:00 08/09/24 08:10 Folic Acid 1 Mg Tablet PO 08/09/24 20:59 1 mg BID YELENA Administration Gabapentin 100 mg/ Gabapentin 1,000 mg 08/06/24 14:00 08/09/24 05:18 900 mg PO 09/05/24 13:59 1,000 mg TID YELENA Administration Multivitamins 1 tab 08/07/24 09:00 08/09/24 08:11 Multivitamins Tablet PO 09/06/24 08:59 1 tab QDAY YELENA Administration Nicotine 21 mg 08/06/24 09:08 08/09/24 08:10 Nicotine Patch 21 Mg/24 Hr Patch.Td24 TOP 09/04/24 00:54 21 mg QDAY YELENA Administration Ondansetron HCl 4 mg 08/04/24 00:55 08/04/24 16:53 Ondansetron Inj 2 Mg/Ml Inj 2 Ml IVP 09/03/24 00:54 4 mg Q6H PRN Administration NAUSEA OR VOMITING Protocol Oxycodone/Acetaminophen 1 tab 08/09/24 02:09 08/09/24 08:10 Oxycodone/Apap 5/325 Tablet PO 08/14/24 02:08 1 tab Q6HR PRN Administration PAIN SCALE 4-6 (Moderate Pantoprazole Sodium 20 mg 08/05/24 21:00 08/08/24 20:09 Pantoprazole 20 Mg Tablet PO 09/04/24 20:59 20 mg HS YELENA Administration Polyethylene Glycol 17 gm 08/07/24 09:00 08/09/24 08:10 Polyethylene Glycol 17 Gm Packet PO 09/06/24 08:59 17 gm QDAY YELENA Administration Quetiapine Fumarate 25 mg 08/04/24 21:00 08/08/24 20:09 Quetiapine Fumarate 25 Mg Tablet PO 09/03/24 20:59 25 mg HS YELENA Administration Sennosides 1 tab 08/07/24 09:00 08/09/24 08:11 Senna Tablet PO 09/06/24 08:59 1 tab QDAY YELENA Administration Protocol Plan 58-year-old male with past medical history of left craniectomy secondary to head trauma about 1 year ago, alcohol use disorder, remote history of polysubstance use disorder, tobacco use disorder, COPD homelessness presenting to the ED with increased right-sided weakness will be admitted for workup for possible new intracranial process, teleneurology consulted requesting MRI without contrast. #Right-sided weakness - stroke ruled out #Frequent falls - likely due to weakness and drugs, alcohol abuse #History of craniectomy Patient has extensive history of craniectomy secondary to trauma about 1 year ago [place] [facility] [place] Patient's was staying at [facility] which is some sort of assisted care living facility for physical therapy; however, was left ago due to some disagreement Patient has several episodes of falls since being discharged from the assisted care living facility and is currently homeless On examination, patient has right sided weakness as noted in physical exam Chest x-ray shows no active disease Head CT shows no acute pathology Teleneurology was consulted in the ED which recommended MRI brain without contrast Brain MRI - Did not show any infarct Plan: Physical therapy recommended short term SNF placement, pending authorization from insurance #Psychiatric history Patient is on Seroquel and bupropion per pill bottles bedside Plan -Resumed his home medications #Alcohol use disorder #Polysubstance use disorder #Tobacco use disorder As stated above, patient has remote history of polysubstance use disorder but currently actively smokes cigarettes and drinks several cans of beer a day Last drink was on 08/03, states that he drank 1 beer Denies drug use at this time, U tox is positive for barbiturates and benzodiazepines and urine alcohol is at 60.8 mg/dL Plan: access services assistant consulted Nicotine patch for tobacco use disorder Taperred off librium today #Possible liver disease? As stated above, patient has been told in the past that he is a liver disorder On labs, patient's has unremarkable liver function test Plan: Monitor for any acute changes #COPD Chronic medical condition, not currently in an exacerbation Patient appears to only be on albuterol rescue inhaler Health Maintenance: Lines: PIV Diet: Cardiac GI prophylaxis: Not needed DVT prophylaxis: SCDs Dispo: Pending placement Code: Full Patient plan of care was discussed with the attending physician, Dr. Briggs and senior resident Dr. Tawanda Michaels, PGY1 Attending Provider Attestation/Addendum I have discussed and was present for the essential components of the history, physical examination, diagnosis, and treatment plan with the resident. I agree with the patient's care as documented by the resident and amended herein by me. Santiago Briggs, DO. Patient seen and evaluated this AM. Patient subsequently admitted for strokelike symptoms, CVA since ruled out. Has been pending insurance authorization for SNF for several days, which is still pending. Daily labs discontinued, the patient doing well otherwise. Patient initially had suicidal ideations several days ago has however has since been cleared by social media executive, no holds necessary. Although this document has been carefully reviewed, there may still be some phonetic and other typographical errors. These errors are purely grammatical due to imperfections in the software program and should not be construed in any way to compromise the substance of the patient's medical care during this visit.
[2024-08-09] MEDS: ATORVASTATIN CALCIUM 20 MG TABLET 40 MG PO (21:34)
[2024-08-09] MEDS: QUEtiapine FUMARATE 25 MG TABLET PO (21:34)
[2024-08-09] MEDS: PANTOPRAZOLE 20 MG TABLET PO (21:34)
[2024-08-10] VITALS: BP 118/75; PULSE 73; RESP 19; TEMP 36.6; O2SAT 94
[2024-08-10] MEDS: oxyCODONE/APAP 5/325 TABLET 1 TAB PO ×3 (01:36→14:14)
[2024-08-10 04:00] VITALS: BP 94/64; PULSE 63; RESP 16; TEMP 36.1; O2SAT 94
[2024-08-10 05:43] LABS: Basophils # (Auto) 0.1 Thou/mm3 (0.0-0.2); Basophils % (Auto) 1 % (0-2.5); Eosinophils # (Auto) 0.5 Thou/mm3 (0.0-0.5); Eosinophils % (Auto) 5 % (0-10); Hematocrit 39.9 % (41.0-53.0); Hemoglobin 13.6 g/dL (13.5-16.0); Immature Granulocytes % (Auto) 0 % (0-0); Immature Granulocytes Auto 0.03 Thou/mm3 (0.00-0.00); Lymphocytes # (Auto) 2.9 Thou/mm3 (1.0-4.8); Lymphocytes % (Auto) 31 % (10-50); Mean Corpuscular HGB Conc 34.1 g/dl (31.0-37.0); Mean Corpuscular Volume 94 fL (80-100); Monocytes % (Auto) 11 % (0-12); Neutrophils # (Auto) 4.8 Thou/mm3 (1.8-7.7); Neutrophils % (Auto) 52 % (37-80); Nucleated Red Blood Cell % 0 /100 WBC (0); Platelet Count 330 Thou/mm3 (140-440); RDW Standard Deviation 46.5 fL (35.1-43.9); Red Blood Count 4.25 Miln/mm3 (4.50-5.90); White Blood Count 9.3 Thou/mm3 (3.8-10.6)
[2024-08-10 06:00] VITALS: BMI 22.8
[2024-08-10 06:21] LABS: Alanine Aminotransferase 26 U/L (10-49); Albumin, Serum 3.8 gm/dL (3.5-5.0); Albumin/Globulin Ratio 1.4 (1.2-2.2); Alkaline Phosphatase 79 U/L (46-116); Anion Gap 8 (7-16); Aspartate Amino Transferase 19 U/L (0-34); BUN/Creatinine Ratio 9 Ratio (12-20); Bilirubin,Total 0.5 mg/dL (0.3-1.2); Blood Urea Nitrogen 7 mg/dL (9-23); Calcium 9.2 mg/dL (8.3-10.6); Calcium (Corrected) 9.4 mg/dL (8.5-10.1); Carbon Dioxide 26.2 mMol/L (20.0-31.0); Chloride 107 mMol/L (98-107); Creatinine (Component) 0.8 mg/dL (0.6-1.3); Estimated Creatinine Clearance 104.4 mL/min (>60); Globulin 2.7 gm/dL (2.3-3.5); Glucose 92 mg/dL (74-106); Magnesium 2.4 mg/dL (1.6-2.6); Osmolality,Calculated 279 (275-295); Phosphorous 3.6 mg/dL (2.4-5.1); Potassium 4.1 mMol/L (3.4-5.1); Sodium 141 mMol/L (136-145); Total Protein 6.5 gm/dL (5.7-8.2); eGFR > 60 See Note
[2024-08-10 07:56] VITALS: BP 108/79; PULSE 68; RESP 15; TEMP 36.9; O2SAT 95
[2024-08-10] MEDS: MULTIVITAMINS TABLET 1 TAB PO (08:05)
[2024-08-10] MEDS: NICOTINE PATCH 21 MG/24 HR PATCH.TD24 TOP (08:06)
[2024-08-10] MEDS: BuPROPion HCL 100 MG TABLET PO (08:43)
--- NOTE | 2024-08-10 09:57 | CHAP ---
Patient expressed gratitude for visit and prayer.
--- NOTE | 2024-08-10 10:00 | CHAP ---
Patient requested Bible which I brought to him.
--- NOTE | 2024-08-10 10:10 | PC.SS ---
LEON contacted [facility] [phone] SS spoke to Rep Gayathri Angel. per Gayathri flores is pending for [facility], due to missing clinical information. LEON faxed all clinicals to # [phone] Gayathri Angel gave [id number] to put on cover sheet. Call Ref # [id number]
[2024-08-10 11:54] VITALS: BP 126/90; PULSE 77; RESP 17; TEMP 36.2; O2SAT 97
--- NOTE | 2024-08-10 12:42 | PC.SS ---
SS spoke to Mandy Moreira [phone] who stated auth for [facility] has been approved and faxed to [facility]. [id number], SS reached out to Riddhi at [facility] who stated the have not received anything yet, SS provided Riddhi with contact info for Lillie.
--- NOTE | 2024-08-10 12:44 | PC.SS ---
Addendum entered by Brenna Díaz 08/10/24 14:24: SS spoke to Aarti at [place], ETA set for 1600, SS spoke to pt at , pt is excited to DC today, pt requested clothing, SS provided clothing at Original Note: Transport set up through [employer] ref #[id number]
[2024-08-10 14:03] VITALS: PULSE 76; RESP 16; O2SAT 95
[2024-08-10 16:00] VITALS: BP 127/91; PULSE 70; RESP 17; TEMP 36.1; O2SAT 94
--- NOTE | 2024-08-10 16:27 | PC.NURSE ---
Report called and given to [facility] nurse regarding transfer of patient to facility.
--- NOTE | 2024-08-10 17:55 | ESDS_ITS ---
<Statement entered by Estefania Cisneros DO - 08/11/24 14:39> I, Estefania Cisneros DO, attest that I was physically present for the chavarria portions of the service and evaluated the patient with the resident and I reviewed and discussed the case with the resident and agree with the resident's findings and plans of care as documented above <Statement entered by Ronnie Neff MD - 08/11/24 14:34> I discussed with and supervised the software engineer intern physician involved in the care of this patient. Patient assessment and plan was discussed with entire medicine team, including my attending. I agree with the assessment and plan as documented by software engineer intern doctor. Patient care was discussed with my attending physician Dr. Amelia Neff, PGY-2 Planned Discharge Date 08/10/24 DS: Providers Provider Date of admission: 08/04/24 00:55 Primary care physician: Alex Wan MD Admitting Provider: Sascha Nunez MD Attending Provider on Admission: Estefania Cisneros DO Consults: 08/04/24 00:59 Referral Speech Therapy Routine Comment: 08/04/24 08:00 Referral Physical Therapy Routine Comment: Physician Instructions: 08/05/24 02:07 [facility] Referral - Nutrition Routine Comment: Positive screening for nutrition needs. [facility] Referral - Safety Routine Comment: Positive screening for safety needs. [facility] Referral - Transportation Routine Comment: Positive screening for transportation needs. Attending Provider on DC: Silvino Michaels MD Discharging Provider: Silvino Michaels MD DS: Diagnosis Problem List Completed Was Problem List Reviewed/Reconciled?: Yes Hospital Course Hospital Course Hospital course: 58-year-old male with past medical history of left craniectomy secondary to head trauma about 1 year ago, alcohol use disorder, remote history of polysubstance use disorder, tobacco use disorder, COPD homelessness presenting to the ED on 08/04 with increased right-sided weakness and admitted for stroke rule out. Hospital course: Pertinent lab findings at the time of admission included WBC 10.5, hemoglobin BUN 6, creatinine 0.8 troponin within normal limits, BNP less than 20 urinalysis with no signs of infection, U-Tox positive for barbiturates and benzos as patient's ethyl alcohol was 60.8 mg/dL. Chest x-ray showed no active disease, head CT showed no acute hemorrhage or mass effect and EKG showed sinus rhythm with occasional PVCs. Head CT showed no acute pathology. Brain MRI - Did not show acute infarct. Hip and pelvis X ray showed no acute hip or pelvic fracture. Patient is treated with benzodiazepines for his alcohol withdrawal. On 08/05/2024, patient reported that he had suicidal ideation for which patient was kept with 1 on 1 sitter and suicide precautions. Physical therapy recommended SNF Patient is discharged to nursing facility with the following medications and recommendations Follow up with your primary care doctor within 1 week of discharge Continue taking your home medications If symptoms worsen, go to your nearest hospital / ED #Right-sided weakness - stroke ruled out #Frequent falls - likely due to weakness and drugs, alcohol abuse #History of craniectomy #Psychiatric history #Alcohol use disorder #Polysubstance use disorder #Tobacco use disorder #Possible liver disease? #COPD Patient plan of care was discussed with the attending physician, Dr. Cisneros and senior resident Dr. Tawanda Michaels, PGY1 Time Spent with Patient Time attestation: Total time spent providing and/or coordinating discharge services: Time spent: Greater than 30 minutes Exam Vital Signs Temp Pulse Resp BP Pulse Ox O2 Del Method O2 Flow Rate 97.0 F 70 17 127/91 H 94 L Room Air 97 08/10/24 16:00 08/10/24 16:00 08/10/24 16:08/10/24 16:08/10/24 16:08/10/24 04:00 08/07/24 18:36 Narrative Exam General: Awake. HEENT: Normocephalic, atraumatic, mucous membranes moist. Heart: Regular rate and rhythm, no murmurs. Lungs: Clear to auscultation with no wheezing or crackles. Abdomen: Soft, nondistended, nontender, positive bowel sounds. ?No guarding or rebound tenderness. Neurologic: Alert and oriented x3, noted weakness in the right upper and lower extremity, 4/5 and patient able to move all 4 extremities. noted craniotomy on left side Extremities: No edema. Skin: No rash or ecchymoses. Discharge Plan Plan Patient Disposition: Xfer Skilled Ns Fac (SNF) Patient condition on transfer: Stable Care Plan Goals: Follow up with your primary care doctor within 1 week of discharge Continue taking your home medications If symptoms worsen, go to your nearest hospital / ED Prescriptions/Referrals Prescriptions/Med Rec: Continued quetiapine 25 mg tablet 25 mg PO .qhs gabapentin 400 mg tablet 1,000 mg PO TID bupropion HCl 100 mg tablet 100 mg PO BID omeprazole 20 mg capsule,delayed release(DR/EC) 20 mg PO QDAY albuterol 90 mcg/actuation aerosol 90 mcg inhalation Q6HR PRN (Reason: shortness of breath) Rx Instructions: 2 puffs Discontinued pantoprazole 40 mg tablet,delayed release (DR/EC) 40 mg PO QDAY Referrals: Alex Wan MD [Primary Care Provider] - Patient/Caregiver Discharge Instructions Discharge Activity: as per physical therapy Other Discharge Activity Instructions:: Follow up with your primary care doctor within 1 week of discharge Continue taking your home medications If symptoms worsen, go to your nearest hospital / ED Education Materials: Quit-Smoking Tools Help for ..., Self-Care for Headaches Print Language: Ukrainian Stand Alone Forms: Miranda Award Info., Patient Portal Info Letter Discharge Order Discharge Orders: Discharge (Routine); Ordered 08/10/24 Ordered By: Ronnie Neff Quality Discharge Quality Measures VTE prophylaxis
== END 2024-08-10 16:53 | disposition skilled nursing facility (03) | DRG 861 ==
LOC: SERX 18:51 → SERHOLD 08-04 01:55 → S2NX 08-04 23:13 → S3NX 08-09 18:41
PROVIDERS: Nurse Practitioner Family; Admitting Provider Student in an Organized Health Care Education/Training Program; Emergency Provider Emergency Medicine; PCP Internal Medicine Pulmonary Disease; Visit Provider Internal Medicine
DX: R53.1 Weakness (principal); J44.9 Chronic obstructive pulmonary disease, unspecified; R45.851 Suicidal ideations; F10.139 Alcohol abuse with withdrawal, unspecified; I10 Essential (primary) hypertension; M25.559 Pain in unspecified hip; F15.10 Other stimulant abuse, uncomplicated; R29.6 Repeated falls; Z59.00 Homelessness unspecified; K76.9 Liver disease, unspecified; Y90.3 Blood alcohol level of 60-79 mg/100 ml; F17.210 Nicotine dependence, cigarettes, uncomplicated; Z75.1 Person awaiting admission to adequate facility elsewhere; Z87.820 Personal history of traumatic brain injury; Z98.890 Other specified postprocedural states; W19.XXXA Unspecified fall, initial encounter; Z79.899 Other long term (current) drug therapy
CPT/HCPCS: 36415; 70450; 70551; 71045; 73521; 80053; 80061; 80307; 80320; 81001; 83036; 83735; 83880; 84100; 84443; 84484; 85025; 85610; 85730; 92610; 93005; 96374; 97162; 99285; J2060; J2270; J2405; A9270; G0480